=== PATIENT | female | born 1960 | race American Indian/Alaskan Native ===

== ENCOUNTER 2017-03-15 06:15 | Inpatient (IN) | payer OTHER, BC, MEDICARE ==
[2017-03-05 09:56] VITALS: BMI 41.5
[2017-03-15] MEDS ORDERED: Lidocaine 1% Inj (20ml) ONE (07:13)
[2017-03-15] MEDS ORDERED: Bupivacaine 0.5% Inj(30mL) ONE (07:13)
[2017-03-15] MEDS ORDERED: Absorbable Gelatin Sponge Size 100 ONE ×2 (07:13→11:49)
[2017-03-15] MEDS ORDERED: Bacitracin Ointment 30 GM TUBE ONE (07:13)
[2017-03-15] MEDS ORDERED: Thrombin Topical 5,000 IU Spray Kit ONE ×2 (07:14→11:49)
[2017-03-15] MEDS ORDERED: EPINEPHrine 1 mg/ml (1:1000) Inj ONE (07:15)
--- NOTE | 2017-03-15 07:40 | CP.PCM.HP ---
History of Present Illness - History of Present Illness History of Present Illness: 56 y/o female with PMH Obesity ,pre diabetic ,chronic knee and lower back pain, neuropathic pain, bronchitis presented via SDS for revision of right knee by Dr. Thompson.As per patient she had an elevator injury at work in 2012 that resulted in her having right TKR. Since than she has been having progressive worsening pain to right knee with gait instability and decreased ROM. Patient walks with a walker. She complains of severe burning pain to right knee. She also has chronic lower back pain with multiple epidural injections as well as shoulder pains.She is on multiple pain medications for pain control.Today patient being admitted for revision of TKR . She has medical clearance in the chart by her PMD. Denies any CP, SOB, palpitations,PND, orthopnea, urinary symptoms or changes in bowel movements. Allergies ; Seasonal PMH ; Obesity ;prediabetic ,chronic knee and lower back pain,neuropathic pain, bronchitis Medications; HCTZ25, Metformin 500 mg BID, Protonix 40 , folic acid 1 mg, lyrica 75 mg , meloxicam 7.5 TID Percoset 10/325 QID Proair HFA 90 mcg, ambien , catherine , flonase , diclofenac Surgery ; Right hip surgery,right knee replacement ,tubal ligation, tonsillectomy family history; ftaher had HTN and CHF, Mother had pancreatic cancer and HTN, brothers had prostate cancer, sister of scleroderma, sister had colon cancer Social history ; Lives in [place] with and 2 children 11 and 16 years old, disabled, walks with a walker , denies smoking ETOH or drug abuse lives in a home with stairs ROS ; 14 point rview of system negative except above PMD : Dr. Lalita Martin Present on Admission - Present on Admission Any Indicators Present on Admission: No Review of Systems - Review of Systems All systems: reviewed and no additional remarkable complaints except Past Patient History - Infectious Disease Hx of Infectious Diseases: None - Tetanus Immunizations Tetanus Immunization: Unknown - Past Medical History & Family History Past Medical History?: Yes - Past Social History Smoking Status: Former Smoker Chewing Tobacco Use: No Cigar Use: No Alcohol: None Drugs: Denies Home Situation {Lives}: With Family Domestic Violence: Negative - CARDIAC Hx Cardiac Disorders: No - PULMONARY Hx Respiratory Disorders: Yes Hx Bronchitis: Yes - NEUROLOGICAL Hx Neurological Disorder: Yes Other/Comment: NUMBENESS TINGLING LEGS AND BACK - HEENT Hx HEENT Problems: No - RENAL Hx Chronic Kidney Disease: No - ENDOCRINE/METABOLIC Other/Comment: GOITER - HEMATOLOGICAL/ONCOLOGICAL Hx Blood Disorders: Yes Hx Anemia: Yes Hx Gum Bleeding: Yes - INTEGUMENTARY Hx Dermatological Problems: No - MUSCULOSKELETAL/RHEUMATOLOGICAL Hx Musculoskeletal Disorders: Yes Hx Arthritis: Yes Hx Back Pain: Yes Other/Comment: MUSCLE WEAKNESS .LIMIT JOINTMOTION - GASTROINTESTINAL Hx Gastrointestinal Disorders: Yes Hx Gastroesophageal Reflux: Yes - GENITOURINARY/GYNECOLOGICAL Hx Genitourinary Disorders: No - PSYCHIATRIC Hx Psychophysiologic Disorder: No - SURGICAL HISTORY Hx Orthopedic Surgery: Yes (RIGHT KNEE REPLACEMENT, RIGHT HIP SX, LEFT MENSICUS REPAIR) - ANESTHESIA Hx Anesthesia: Yes Hx Anesthesia Reactions: No Hx Malignant Hyperthermia: No Has any member of the family had a problem w/ anesthesia?: No Meds Allergies/Adverse Reactions: Allergies Allergy/AdvReac Type Severity Reaction Status Date / Time No Known Allergies Allergy Verified 08/09/12 12:30 Physical Exam - Constitutional Appears: Non-toxic, No Acute Distress, Other (obese) - Head Exam Head Exam: ATRAUMATIC, NORMAL INSPECTION, NORMOCEPHALIC - Eye Exam Eye Exam: EOMI, Normal appearance, PERRL Pupil Exam: NORMAL ACCOMODATION - ENT Exam ENT Exam: Mucous Membranes Moist, Normal Exam - Neck Exam Neck exam: Positive for: Full Rom, Normal Inspection - Respiratory Exam Respiratory Exam: Clear to Auscultation Bilateral, NORMAL BREATHING PATTERN. absent: Rales, Rhonchi, Wheezes - Cardiovascular Exam Cardiovascular Exam: REGULAR RHYTHM, RRR, +S1, +S2. absent: JVD - GI/Abdominal Exam GI & Abdominal Exam: Normal Bowel Sounds, Soft. absent: Distended, Guarding, Rebound, Tenderness - Rectal Exam Rectal Exam: Deferred - Extremities Exam Extremities exam: Positive for: normal capillary refill, normal inspection, pedal pulses present. Negative for: calf tenderness, joint swelling, pedal edema - Back Exam Back exam: NORMAL INSPECTION - Neurological Exam Neurological exam: Alert, CN II-XII Intact, Oriented x3, Reflexes Normal - Psychiatric Exam Psychiatric exam: Normal Affect, Normal Mood - Skin Skin Exam: Dry, Intact, Normal Color, Warm Results - Vital Signs Recent Vital Signs: Last Vital Signs Temp 98.1 F 03/15/17 07:22 Pulse 69 03/15/17 07:22 Resp 18 03/15/17 07:22 BP 133/73 03/15/17 07:22 Pulse Ox 96 03/15/17 07:22 - Labs Labs: Laboratory Results - last 24 hr 03/15/17 07:13 POC Glucose (mg/dL) 98 Assessment & Plan - Assessment and Plan (Free Text) Assessment: 56 y/o female with PMH Obesity ,pre diabetic ,chronic knee and lower back pain, neuropathic pain, bronchitis presented via SDS for revision of TKR by Dr. Thompson. 1. Revision of TKR admit patient via SDS clearance in the chart Keep NPO for now Will start pian management and DVt prophylaxis post op as per ortho recommendations PT eval post op 2. Pre diabetic NPO for now Will resiume Metformin tomorrow Accuchecks and insulin coverage check Hgb A1c 3. Morbid obesity patient used to be on diet pills Belviq but has been not taking for the last 1 month follows up with an food and beverage operations manager 4. Chronic lower back pain Will start pain medication and PT post op 5.Anemia unclear etiology Hgb 10.9 preop repeat in AM 6. Bronchitis stable duonebs prn 7. DVT prophylaxis will start post op as per ortho recommendations
[2017-03-15] MEDS ORDERED: Pantoprazole 40 mg EC Tab PO SCH (09:00)
[2017-03-15] MEDS ORDERED: Dexamethasone 4 mg/1 ml ONE (12:09)
[2017-03-15] MEDS ORDERED: Ropivacaine 0.5% 30ML IV ONE (12:09)
[2017-03-15] MEDS ORDERED: Lidocaine 4% (Laryng-O-Jet) Kit MM ONE (12:13)
[2017-03-15] MEDS ORDERED: Propofol 10 mg/ml Inj (20 ML) ONE (12:13)
[2017-03-15] MEDS ORDERED: Succinylcholine 200 mg/10 ml Inj IV ONE (12:13)
[2017-03-15] MEDS ORDERED: Midazolam 2 MG/2 ML VIAL ONE (13:20)
[2017-03-15] MEDS ORDERED: Lactated Ringer's 1,000 ML IV ONE ×3 (13:27→18:16)
[2017-03-15] MEDS ORDERED: Lactated Ringer's 500 ML IV ONE (13:27)
[2017-03-15] MEDS ORDERED: Sodium Chloride 0.9% 500 ML IV ONE (13:28)
--- NOTE | 2017-03-15 13:56 | CP.PCM.CON ---
History of Present Illness - History of Present Illness History of Present Illness: CYNTHIA: 56 yo female CC: Severe pain and deformity and instability R knee s/p TKR (Right) HPI: pt had sustained a work related injury 02/25/12- as a result of this injury, the pt underwent TKR (Right). Since the index arthroplasty(December 2012, the pt had an episode of arthrofibosis which culminated in manipulATION. sINCE THEN, THE PT HAS NOTED INCREASED VALGUS DEFORMITY of the Right knee. bThe pt exhibits marked flexion instability and loosening of the femoral component. Pt presetns after two years of pain and gross flexion instability. CT scan had been accomplished which was incorrectly read as negative. The pt has a varus tibial cut/thick patella/loosening of the femoral comonent, and flexion extension gap mismatch on physical exam The pr has failed two years of conservative managment and presents now for revision of all 3 componenets. Pros , cons, risks and benefits of surgical approachg discussed at length with pt and her signifciant other Alfa. Possibility of mechanical failure/ infection thromboembolic disease discussed at length No promises/guarantees. Possibility of stiffness, nerve in jury, mechanical failure, secondary manipulation or surgery, possible tertiary surgery discussed. No promises/ guarantees Past Patient History - Infectious Disease Hx of Infectious Diseases: None - Tetanus Immunizations Tetanus Immunization: Unknown - Past Medical History & Family History Past Medical History?: Yes - Past Social History Smoking Status: Former Smoker Chewing Tobacco Use: No Cigar Use: No Alcohol: None Drugs: Denies Home Situation {Lives}: With Family Domestic Violence: Negative - CARDIAC Hx Cardiac Disorders: No - PULMONARY Hx Respiratory Disorders: Yes Hx Bronchitis: Yes - NEUROLOGICAL Hx Neurological Disorder: Yes Other/Comment: NUMBENESS TINGLING LEGS AND BACK - HEENT Hx HEENT Problems: No - RENAL Hx Chronic Kidney Disease: No - ENDOCRINE/METABOLIC Other/Comment: GOITER - HEMATOLOGICAL/ONCOLOGICAL Hx Blood Disorders: Yes Hx Anemia: Yes Hx Gum Bleeding: Yes - INTEGUMENTARY Hx Dermatological Problems: No - MUSCULOSKELETAL/RHEUMATOLOGICAL Hx Musculoskeletal Disorders: Yes Hx Arthritis: Yes Hx Back Pain: Yes Other/Comment: MUSCLE WEAKNESS .LIMIT JOINTMOTION - GASTROINTESTINAL Hx Gastrointestinal Disorders: Yes Hx Gastroesophageal Reflux: Yes - GENITOURINARY/GYNECOLOGICAL Hx Genitourinary Disorders: No - PSYCHIATRIC Hx Psychophysiologic Disorder: No - SURGICAL HISTORY Hx Orthopedic Surgery: Yes (RIGHT KNEE REPLACEMENT, RIGHT HIP SX, LEFT MENSICUS REPAIR) - ANESTHESIA Hx Anesthesia: Yes Hx Anesthesia Reactions: No Hx Malignant Hyperthermia: No Has any member of the family had a problem w/ anesthesia?: No Meds Allergies/Adverse Reactions: Allergies Allergy/AdvReac Type Severity Reaction Status Date / Time seasonal Allergy ITCHING Uncoded 03/15/17 07:38 - Medications Medications: Current Medications Acetaminophen (Tylenol 325mg Tab) 650 mg PO Q6 PRN PRN Reason: Fever >100.4 F Docusate Sodium (Colace) 100 mg PO BID [facility] Enoxaparin Sodium (Lovenox) 40 mg SC DAILY JOHN PRN Reason: Protocol Folic Acid (Folic Acid) 1 mg PO DAILY [facility] Hydrochlorothiazide (Hydrodiuril) 25 mg PO DAILY [facility] Metformin HCl (Glucophage) 500 mg PO BID [facility] Ondansetron HCl (Zofran Inj) 4 mg IVP Q6 PRN PRN Reason: Nausea/Vomiting Pantoprazole Sodium (Protonix Ec Tab) 40 mg PO DAILY JOHN Pregabalin (Lyrica) 75 mg PO TID JOHN Physical Exam - Additional Findings Additional findings: Musculoskekltal: stance erect/ pelvis levbel antalgicity of gait R: decreased stride length/stance time ROM retsricted tyerminal flex ext +instability to varus valgus in full extension and 30 degrees flexion 4+ anterior drawer with positive Parag and gross instability Results - Vital Signs Recent Vital Signs: Last Vital Signs Temp 98.1 F 03/15/17 07:22 Pulse 69 03/15/17 07:30 Resp 18 03/15/17 07:22 BP 133/73 03/15/17 07:22 Pulse Ox 96 03/15/17 07:22 - Labs Labs: Laboratory Results - last 24 hr 03/15/17 03/15/17 07:13 07:40 POC Glucose (mg/dL) 98 Blood Type A POSITIVE Antibody Screen Negative Crossmatch See Detail BBK History Checked Patient has bt - Impressions Impression: Xrays accomplioshed at [facility] were incorrectly read and are discounted errors in the TKR: radiographic: thick patella varus tibial cut femoral component lossening physical exam reveals the aforemenetione flexion/extension instability Assessment & Plan - Assessment and Plan (Free Text) Assessment: A- s.p primary TKR after work related injury Absolutely no evidence for sepsis / the pt is having marked pain, instability and gait dysfunction Pt presents at this pouint fro revision TKR Plan: P- for revision TKR- all 3 compionents NO promises or guarantees
[2017-03-15] MEDS ORDERED: Desflurane Inhalation Anesthetic Liq (240 ml) ONE (13:58)
[2017-03-15] MEDS ORDERED: Rocuronium 10 mg/ml (5 ml) ONE ×3 (14:11→16:38)
[2017-03-15] MEDS ORDERED: Phenylephrine 10 mg/ml Inj ONE (14:37)
[2017-03-15] MEDS ORDERED: Neostigmine Methylsulfate 2 MG/2 ML ML IV ONE (14:51)
[2017-03-15] MEDS ORDERED: Neostigmine Methylsulfate 3mg/3ml Syringe IV ONE (14:51)
[2017-03-15 15:00] LABS: FLUID TYPE SYNOVIAL FLUID
[2017-03-15] MEDS ORDERED: Sevoflurane - Inhalation Anesthetic Liq (250 ml) ONE (15:29)
[2017-03-15] MEDS ORDERED: HYDROmorphone 0.5 mg/0.5 ml ISec IVP PRN (16:17)
--- NOTE | 2017-03-15 16:22 | PCM.ANESB2 ---
Popliteal Nerve Block - Popliteal Nerve Block Date of Procedure: 03/15/17 Anesthesiologist: Rigoberto Pre-Procedure Diagnosis: Failed RTKA Post-Procedure Diagnosis: Same Procedure Performed: Popliteal Nerve Block Right - Procedure Popliteal Nerve Block: This procedure was explained to the patient that it is for post-operative pain management. Consent was obtained after a thorough discussion with the patient regarding the benefits and possible complications of local anesthetic block of the sciatic nerve at the popliteal level. The patient was brought to the operating room and standard monitors are applied. Time-out was held with the circulating nurse to confirm the correct surgery and the appropriate block. Under general anesthesia, patient's operative leg was gently raised and supported and the groove in between the biceps femoris and vastus lateralis muscles was carefully palpated. The skin approximately 8cm above the popliteal crease was then marked. The ultrasound transducer was then applied to the posterior thigh approximately 8cm above the popliteal crease in the transverse plane and the sciatic nerve before its division was visualized lateral to the popliteal artery and in between the bicep femoris and semimembranosus/ semitendinosus muscles. After identification, the lateral portion of the thigh was prepped with Chloraprep. At this point, a # 21 gauge Stimuplex insulated 4 inch needle was inserted into pre-marked area and advanced in a perpendicular direction. The needle was inserted above the ultrasound transducer in-plane towards the sciatic nerve in a [id number]-[id number] direction. Needle advancement was performed carefully under direct ultrasound visualization. Nerve stimulator was used and dorsiflexion of the __right___ foot was elicited at a current of __0.5___ MA. After repeated negative aspiration, __2___cc of __0.5___ % ropivicaine was injected and this was flowed with ___18___ cc of ___0.5___% ___ropivicaine ___. Under ultrasound guidance the local anesthetics were observed tenting the epidural sheath and surrounding the roots of the sciatic nerve. The needle was removed intact and sterile dressing was applied. The patient tolerated the popliteal nerve block well with stable vital signs and was subsequently prepared for the surgery.
--- NOTE | 2017-03-15 16:25 | PCM.ANESB3 ---
Femoral Nerve Block - Femoral Nerve Block Date of Procedure: 03/15/17 Anesthesiologist: Rigoberto Pre-Procedure Diagnosis: Failed RTKA Post-Procedure Diagnosis: Same Procedure Performed: Femoral Nerve Block Right - Procedure Femoral Nerve Block: The procedure was explained to the patient that it is for the post-operative pain management. Consent was obtained after a thorough discussion with the patient regarding the benefits and possible complications of local anesthetic block of the femoral nerve at the inguinal crease area. The patient was brought to the operating room and standard monitors were applied. Time-out was held with the circulating nurse to confirm the correct surgery and the appropriate block. Under general anesthesia, patient was placed in supine position with fully extended lower extremities and the right___ groin exposed. The femoral artery was then carefully palpated. The ultrasound transducer was then applied to this area in the transverse plane and the femoral nerve was visualized lateral to the femoral artery and underneath the fascia iliaca. After thorough identification, the inguinal crease area was prepped with Chloraprep. At this point, a #22 gauge Stimuplex 2-inch needle was inserted immediately lateral to the femoral artery pulse at the inguinal crease and advanced perpendicularly. The needle was inserted to the ultrasound transducer in-plane towards the femoral nerve in a ipkhmll-hs-bihsts direction. Needle advancement was performed carefully under direct ultrasound visualization. Nerve stimulator was used and twitch of the quadriceps muscle was obtained at current of ___0.4__ MA. After negative aspiration, ___2__cc of ___0.5__% ropivicaine ____was injected and this was followed with __18____ cc of ___0.5____ % ropivicaine . Under ultrasound guidance the local anesthetics were observed spreading below fascia iliaca and around the femoral nerve. The needle was removed intact and sterile dressing was applied. The patient had stable vital signs, was conscious and in no apparent distress. The patient tolerated the femoral nerve block well with stable vital signs and was prepared for subsequent surgery.
[2017-03-15 17:10] LABS: SYNOVIAL FLUID TOTAL COUNT 100 (0-0)
[2017-03-15] MEDS ORDERED: Lactated Ringer's 1,000 ML IV SCH (18:19)
[2017-03-15] MEDS: HYDROmorphone 0.5 mg/0.5 ml ISec IVP PRN ×4 (18:20→19:15)
[2017-03-15] MEDS ORDERED: ceFAZolin 1 GM in Sodium Chloride 0.9% 100 ML IVPB SCH (19:45)
--- NOTE | 2017-03-15 19:55 | PCM.SURG1 ---
Surgeon's Initial Post Op Note - Surgeon's Notes Surgeon: Donna Tobacco Classer: BERNADETTE Osborne Type of Anesthesia: General Endo, Block Regional Anesthesia Administered By: Dr Srinivas Torres/Dr [place] Pre-Operative Diagnosis: painful/UNstable/malaligned R TKR. thick patella component. valgus deformity post op. morbid obesity Operative Findings: instability with flexion/extension mismatch. instability in varus/valsus plane as well. lateral patella contracture(malalingment-valgus deformity). thick patella girth Post-Operative Diagnosis: same Operation Performed: Revision R TKR- complex. repair/reinforcemnt patella ligament. Removal TKR- 3 components. anterior and posterior synovectomy. lateral patella release. posterior capsular release Specimen/Specimens Removed: TKR components/synovium/cartilage/bone Estimated Blood Loss: EBL {In ML}: 125 Blood Products Given: N/A Drains Used: No Drains Post-Op Condition: Good Date of Surgery/Procedure: 03/15/17 Time of Surgery/Procedure: 14:40 (13:27)
--- NOTE | 2017-03-15 21:12 | PCM.OP ---
Operative Report - Operative Report Date of Surgery/Procedure: 03/15/17 Time of Surgery/Procedure: 14:40 (time in room/anaesthesia indcution time 13:27) Surgeon: Donna [employer] Assistant: BERNADETTE Osborne/ assist Sunita Stallworth Anesthesia/Sedation: GETA/regional- DR Peterson/DR Shane Pre-Operative Diagnosis: Failed/painful/unstable TKR R Post-Operative Diagnosis: same. severe valgua malalignment post op with persistent instability Indication for Surgery: severe pain, inability to ambulate, and instability R TKR Operative Findings: unstable R TKR. synovits. lateral patella contracture. thick patella girth. morbid obesity Procedure/Operation Description: Revision R TKR. repair patella tendon. anterior and posterior synovectomy. removal failed TKR componenets. posterior capsualr release. lateral patella release. Operative procedure. After having obtained informed consent from pt and her , after throughly discussing pros's, cons risks and benfits of surgical approach, after having identiifed side, site and procedure in a critical pause/time-out, the pt identified as Jessica Zeng, in the supoine position with all bony prominences well padded the R lower ext is prepped and free draped in the usual fashion for lower extremity surgery. The tourniquet had been applied but is not yet inflated. The lower ext is exsanguinated using a 6 inch Esmarch bandage. The tourniquet which had been applied is inflated to 350 mm HG. The initial incision is extended 2 fingerbreadths proximally and distally. Skin incision is carried down thru skin and subq tissue. Medial arthrotomy is accomplished. synovial fluid is sent to lab for stat gm stain(number of WBCS per hi power field). Cultures- aerobic, anaerobic AFB and fungal. Patella is everted, knee is flexed and portion of patella ligament insertion is elvated to be repaired later. Pt is morbidly obese with aBMI . Lateral patella retinacular release is accomplished to allow eversion of patella. Partial syovectomy is accomplished Hemostasis is accomplished using the Aquamantys. attention is first turned to the tibial compponent. It should be noted that evaluation of alignment (severe preop valgus)- and stability testing is accomplished. The pt has severe flexion instability with evidence of flexion/extension mismatch. There is evidence of varus valgus instability as well. The interfac e between the tibial component and the cement is developed with the oscillating saw and the Accu druve instrument. The plane is developed circumferentially, and the component is removed with the [employer] revision osteotome. Excess cement is removed with the high speed [place] drill. At this point comuter navigation is employed, using accelerometer technology. The tibial strut is affixeed the the anterior aspect of the tibia. The sensor and the accelorometer are affixed as well. the medial and lateral malleoli are registered, after the offset has been entered. The tibial cut is set to 0 degrees varus/valgus and 0 degrees post slope. Tibial cut is set as skim cut 1 mm below the tibial surface. Tibial osteotmy is accomplshed and the proximal tibia is prepared with reamin to 12 mm stem. The prox tibial plateau is prepared with guides to roattaion the lateral asp[ect of the tibial condyle, kidmalleolar axis and medial 1/3 tibial tuberosity. Attention is turned to the femur, The plane between the oxinium component and the femoral cment is developed using the high speed drill and the Accudrive. The compinent is removbed with minimal bone loss; in fact the femoral componeent is relatively loose, and is removed with little bone loss. The intramedullary canal is found and the distal femoral cut is set to 2 degrees valgus- the distal cut is set to 25 mmdistal to the femoral epiciondyle. Distal femoral cut is accomplished. # 3 4-in 1 block is affixed to the distal femur. chamfer cuts are accomplished anterior and posterior femoral osteotomies are accomplished. posterior capsule is forund to be contracted with exuberant synovitis- Posterior capsule is released and lateral patella retiaculkumis released. Intercondylar box cut is accomplished and thye femoral canal is reamed to 12mm. patella girth is found to be excessive. The poly patella component is removed using the oscillateing saw. plastic pegs are removed. The patella is reamed. Trialing is accomplished with the #3 femoral component with stem extension; the #2 tibial tray with stem extensionis employed and. 22 mm tibial poly insert. 35 mm patella is employed. Flexion extension balance and patella balance are excellent. The femur, tibia and patella are prepared after the tourniquet is deflated. The #3 femoral component is cmented with stem extension nad the numer 2 tibial comonent. The 35 mm patella is cemented. Posterior capsuleis released aswell as latersl patella retinaculum. Anterior and posterior synovectomy is accomplished. Tourniquet deflated/hemostasis is controlled. Closure in layers with #2 fiber wire/ 0 quill 2-0 vicryl and nikki for skin It should be noted prior to closure, the patella ligament is repaire/reinforced with 2 anchors with 4 fiber wire sutures to repair/reinforce the patella. Ricardo Miller dressing and knee immobilizer is applied. Dr Thompson dictating 03/15. posterior synovectomy is accomplished. Estimated Blood Loss: 125 cc Blood Replaced: 2 units prbc's Sponge/Instrument Count: correct Drains: 0 Complications: none Specimen: cartilage/synovium/bone Discharge & Condition: stable
[2017-03-16] MEDS: ceFAZolin 1 GM in Sodium Chloride 0.9% 100 ML IVPB SCH ×2 (01:26→08:36)
[2017-03-16 06:56] LABS: BASO % 0.1 % (0.0-2.0); HEMATOCRIT 32.1 % (34.0-47.0); LYMPH # 1.1 K/uL (1.0-4.3); LYMPH % 12.9 % (20.0-40.0); MEAN CELL VOLUME 88.1 fl (81.0-99.0); MEAN CORPUSCULAR HEMOGLOBIN 29.4 pg (27.0-31.0); MEAN CORPUSCULAR HGB CONC 33.4 g/dL (33.0-37.0); MEAN PLATELET VOLUME 8.1 fl (7.2-11.7); MONO # 0.8 K/uL (0.0-0.8); NEUT # 6.6 K/uL (1.8-7.0); NRBC % 0.1 % (0.0-0.0); RED CELL DISTRIBUTION WIDTH 14.4 % (11.5-14.5); WHITE BLOOD COUNT 8.4 K/uL (4.8-10.8)
[2017-03-16 07:04] LABS: BLOOD UREA NITROGEN 11 mg/dl (7-17); CALCIUM 8.3 mg/dL (8.4-10.2); CARBON DIOXIDE 24 mmol/L (22-30); CHLORIDE 106 mmol/L (98-107); GFR AFRICAN-AMERICAN > 60; GLUCOSE,RANDOM 122 mg/dL (65-105); POTASSIUM 3.9 MMOL/L (3.6-5.0); SODIUM 137 mmol/l (132-148)
--- NOTE | 2017-03-16 07:58 | CP.PCM.PN ---
Subjective - Date & Time of Evaluation Date of Evaluation: 03/16/17 Time of Evaluation: 07:55 - Subjective Subjective: S- pt with some post op discomfort-managed with analgesia Objective - Vital Signs/Intake and Output Vital Signs (last 24 hours): Temp Pulse Resp BP Pulse Ox 98.6 F 59 L 18 103/68 100 03/16/17 07:36 03/16/17 07:36 03/16/17 07:36 03/16/17 07:36 03/16/17 07:36 - Medications Medications: Current Medications Acetaminophen (Tylenol 325mg Tab) 650 mg PO Q6 PRN PRN Reason: Fever >100.4 F Docusate Sodium (Colace) 100 mg PO BID JOHN Enoxaparin Sodium (Lovenox) 40 mg SC DAILY JOHN PRN Reason: Protocol Folic Acid (Folic Acid) 1 mg PO DAILY JOHN Hydrochlorothiazide (Hydrodiuril) 25 mg PO DAILY JOHN Hydromorphone HCl (Dilaudid 0.2 Mg/Ml Band Scroll Saw Operator) 0 mg IV PRN PRN; Protocol PRN Reason: Pain, moderate (4-7) Last Admin: 03/16/17 04:29 Dose: 6 mg Lactated Ringer's (Lactated Ringer's) 1,000 mls @ 100 mls/hr IV .Q10H JOHN Lactated Ringer's (Lactated Ringer's) 1,000 mls @ 100 mls/hr IV .Q10H JOHN Cefazolin Sodium 1 gm/ Sodium (Chloride) 100 mls @ 100 mls/hr IVPB Q8 JOHN Stop: 03/16/17 09:59 Last Admin: 03/16/17 01:26 Dose: 100 mls/hr Metformin HCl (Glucophage) 500 mg PO BID JOHN Ondansetron HCl (Zofran Inj) 4 mg IVP Q6 PRN PRN Reason: Nausea/Vomiting Pantoprazole Sodium (Protonix Ec Tab) 40 mg PO DAILY JOHN Pregabalin (Lyrica) 75 mg PO TID JOHN - Labs Labs: 03/16/17 06:20 03/16/17 06:20 PT 12.2 Seconds (9.8-13.1) 03/16/17 06:20 INR 1.2 (0.9-1.2) 03/16/17 06:20 - Skin Additional comments: Objective systemic-wnl Musculoskeletal stance/gait-defrred Dressingintact N/V intact Xrays- reveal excellentposition of construct Assessment and Plan - Assessment and Plan (Free Text) Assessment: A- s/p Revision TKR P- physio- orthopedically stable full weight bearing CPM
[2017-03-16] MEDS: Pantoprazole 40 mg EC Tab PO SCH ×2 (08:53→09:05)
[2017-03-16] MEDS: Lactated Ringer's 1,000 ML IV SCH (08:59)
--- NOTE | 2017-03-16 09:49 | CP.PCM.PN ---
Subjective - Date & Time of Evaluation Date of Evaluation: 03/16/17 Time of Evaluation: 09:45 - Subjective Subjective: 56 yo woman s/p right TKR, POD #1, is referred for pain management. Patient is a chronic pain patient, on Lyrica and Percocet 10/325mg at home. She has a pain management physician managing her pain, who has tried her on various medications before settling on the current regimen. After a previous surgery, she was briefly placed on a long acting agent before being weaned to the current regimen. She said that she couldn't tolerate Morphine due to lethargy and sedation, as well as confusion. She had been on Dilaudid CONTRACT FORESTER post-op, but she felt it wasn't effective and the beeping noise was bothersome. Objective - Vital Signs/Intake and Output Vital Signs (last 24 hours): Temp Pulse Resp BP Pulse Ox 98.6 F 59 L 18 103/68 100 03/16/17 07:36 03/16/17 07:36 03/16/17 07:36 03/16/17 07:36 03/16/17 07:36 - Medications Medications: Current Medications Acetaminophen (Tylenol 325mg Tab) 650 mg PO Q6 PRN PRN Reason: Fever >100.4 F Docusate Sodium (Colace) 100 mg PO BID [facility] Last Admin: 03/16/17 08:53 Dose: 100 mg Enoxaparin Sodium (Lovenox) 40 mg SC DAILY [facility] PRN Reason: Protocol Folic Acid (Folic Acid) 1 mg PO DAILY [facility] Last Admin: 03/16/17 09:01 Dose: 1 mg Hydrochlorothiazide (Hydrodiuril) 25 mg PO DAILY [facility] Hydromorphone HCl (Dilaudid) 1 mg IVP Q3 PRN PRN Reason: Pain, severe (8-10) Lactated Ringer's (Lactated Ringer's) 1,000 mls @ 100 mls/hr IV .Q10H [facility] Last Admin: 03/16/17 08:59 Dose: 100 mls/hr Lactated Ringer's (Lactated Ringer's) 1,000 mls @ 100 mls/hr IV .Q10H [facility] Cefazolin Sodium 1 gm/ Sodium (Chloride) 100 mls @ 100 mls/hr IVPB Q8 [facility] Stop: 03/16/17 09:59 Last Admin: 03/16/17 08:36 Dose: 100 mls/hr Metformin HCl (Glucophage) 500 mg PO BID [facility] Ondansetron HCl (Zofran Inj) 4 mg IVP Q6 PRN PRN Reason: Nausea/Vomiting Pantoprazole Sodium (Protonix Ec Tab) 40 mg PO DAILY [facility] Last Admin: 03/16/17 09:05 Dose: 40 mg Pregabalin (Lyrica) 75 mg PO TID [facility] Last Admin: 03/16/17 09:05 Dose: 75 mg - Labs Labs: 03/16/17 06:20 03/16/17 06:20 PT 12.2 Seconds (9.8-13.1) 03/16/17 06:20 INR 1.2 (0.9-1.2) 03/16/17 06:20 - Extremities Exam Additional comments: Right knee dressing intact. Assessment and Plan (1) Knee pain Assessment & Plan: 56 yo woman s/p TKR. Patient has chronic pain and has higher opioid requirement post-op. - d/c dilaudid [employer] FORESTER - start Oxycontin 20mg q12h - start Dilaudid IV 1mg q3h PRN - upon discharge to rehab, patient can be switched from Dilaudid IV to home medication of Percocet 10/325, q4-6h PRN - continue Lyrica Status: Acute
[2017-03-16] MEDS: Enoxaparin 40 mg Syringe SC SCH (10:00)
[2017-03-16] MEDS: oxyCODONE 20 mg ER Tab (oxyCONTIN) PO SCH ×2 (10:14→22:17)
--- NOTE | 2017-03-16 11:14 | CP.PCM.CON ---
History of Present Illness - History of Present Illness History of Present Illness: THE PATIENT IS A 56 YEAR OLD FEMALE WHO HAD A COMPLEX REVISION OR HER RIGHT TKR YESTERDAY BY DR BHANDARI WHO ASKED ME TO FOLLOW HER O THIS ADMISSION. SHE HAD AN ELEVATOR WORK INJURY IN 2012 AND HAD A TOTAL RKR AT THAY TIME BUT SHE CONTINUED TO HAVE PAIN AND THEN INSTABILITY OF HER RIGHT KNEE AND THERE HAD THE REVISION YESTERDAY. SHE ALSO HAS A HISTORY OF TYPE 2 DM, CHRONIC BRONCHITIS, BACK PAIN AND SHE IS OVERWEIGHT. SHE DENIES CHEST PAIN OR SOB. Past Patient History - Infectious Disease Hx of Infectious Diseases: None - Tetanus Immunizations Tetanus Immunization: Unknown - Past Medical History & Family History Past Medical History?: Yes - Past Social History Smoking Status: Former Smoker Chewing Tobacco Use: No Cigar Use: No Alcohol: None Drugs: Denies Home Situation {Lives}: With Family Domestic Violence: Negative - CARDIAC Hx Cardiac Disorders: No - PULMONARY Hx Respiratory Disorders: Yes Hx Bronchitis: Yes - NEUROLOGICAL Hx Neurological Disorder: Yes Other/Comment: NUMBENESS [place] LEGS AND BACK - HEENT Hx HEENT Problems: No - RENAL Hx Chronic Kidney Disease: No - ENDOCRINE/METABOLIC Other/Comment: GOITER - HEMATOLOGICAL/ONCOLOGICAL Hx Blood Disorders: Yes Hx Anemia: Yes Hx Gum Bleeding: Yes - INTEGUMENTARY Hx Dermatological Problems: No - MUSCULOSKELETAL/RHEUMATOLOGICAL Hx Musculoskeletal Disorders: Yes Hx Arthritis: Yes Hx Back Pain: Yes Other/Comment: MUSCLE WEAKNESS .LIMIT JOINTMOTION - GASTROINTESTINAL Hx Gastrointestinal Disorders: Yes Hx Gastroesophageal Reflux: Yes - GENITOURINARY/GYNECOLOGICAL Hx Genitourinary Disorders: No - PSYCHIATRIC Hx Psychophysiologic Disorder: No - SURGICAL HISTORY Hx Orthopedic Surgery: Yes (RIGHT KNEE REPLACEMENT, RIGHT HIP SX, LEFT MENSICUS REPAIR) - ANESTHESIA Hx Anesthesia: Yes Hx Anesthesia Reactions: No Hx Malignant Hyperthermia: No Has any member of the family had a problem w/ anesthesia?: No Meds Allergies/Adverse Reactions: Allergies Allergy/AdvReac Type Severity Reaction Status Date / Time seasonal Allergy ITCHING Uncoded 03/15/17 07:38 - Medications Medications: Current Medications Acetaminophen (Tylenol 325mg Tab) 650 mg PO Q6 PRN PRN Reason: Fever >100.4 F Docusate Sodium (Colace) 100 mg PO BID [facility] Last Admin: 03/16/17 08:53 Dose: 100 mg Enoxaparin Sodium (Lovenox) 40 mg SC DAILY [facility] PRN Reason: Protocol Folic Acid (Folic Acid) 1 mg PO DAILY [facility] Last Admin: 03/16/17 09:01 Dose: 1 mg Hydrochlorothiazide (Hydrodiuril) 25 mg PO DAILY [facility] Hydromorphone HCl (Dilaudid) 1 mg IVP Q3 PRN PRN Reason: Pain, severe (8-10) Last Admin: 03/16/17 10:15 Dose: 1 mg Lactated Ringer's (Lactated Ringer's) 1,000 mls @ 100 mls/hr IV .Q10H [facility] Last Admin: 03/16/17 08:59 Dose: 100 mls/hr Lactated Ringer's (Lactated Ringer's) 1,000 mls @ 100 mls/hr IV .Q10H [facility] Metformin HCl (Glucophage) 500 mg PO BID [facility] Ondansetron HCl (Zofran Inj) 4 mg IVP Q6 PRN PRN Reason: Nausea/Vomiting Oxycodone HCl (Oxycontin Extended Release Tab) 20 mg PO Q12 [facility] Last Admin: 03/16/17 10:14 Dose: 20 mg Pantoprazole Sodium (Protonix Ec Tab) 40 mg PO DAILY [facility] Last Admin: 03/16/17 09:05 Dose: 40 mg Pregabalin (Lyrica) 75 mg PO TID [facility] Last Admin: 03/16/17 09:05 Dose: 75 mg Physical Exam - Respiratory Exam Respiratory Exam: Clear to Auscultation Bilateral - Cardiovascular Exam Cardiovascular Exam: REGULAR RHYTHM, +S1, +S2 - Additional Findings Additional findings: PAT EKG WITH NSR Results - Vital Signs Recent Vital Signs: Last Vital Signs Temp 98.6 F 03/16/17 07:36 Pulse 59 L 03/16/17 07:36 Resp 18 03/16/17 07:36 BP 103/68 03/16/17 07:36 Pulse Ox 100 03/16/17 07:36 - Labs Result Diagrams: 03/16/17 06:20 03/16/17 06:20 Labs: Laboratory Results - last 24 hr 03/15/17 03/15/17 03/15/17 07:40 14:58 18:51 WBC RBC Hgb Hct MCV MCH MCHC RDW Plt Count MPV Neut % (Auto) Lymph % (Auto) [place] % (Auto) Eos % (Auto) Baso % (Auto) Neut # Lymph # [place] # Eos # Baso # PT INR Sodium Potassium Chloride Carbon Dioxide Anion Gap BUN Creatinine Est GFR ( Amer) Est GFR (Non-Af Amer) POC Glucose (mg/dL) 121 H Random Glucose Calcium Fluid Type Synovial fluid Synovial WBC 10.0 Synovial RBC 1337.5 H Synovial Neutrophils 15.0 H Synovial Lymphocytes 53.0 H Synov Monos/Macrophage 32 H Synovial Fluid Comment None Blood Type A POSITIVE Antibody Screen Negative Crossmatch See Detail BBK History Checked Patient has bt 03/16/17 03/16/17 03/16/17 05:49 06:20 06:20 WBC 8.4 D RBC 3.64 L Hgb 10.7 L Hct 32.1 L MCV 88.1 D MCH 29.4 MCHC 33.4 RDW 14.4 Plt Count 160 MPV 8.1 Neut % (Auto) 78.0 H Lymph % (Auto) 12.9 L [place] % (Auto) 9.0 Eos % (Auto) 0.0 Baso % (Auto) 0.1 Neut # 6.6 Lymph # 1.1 [place] # 0.8 Eos # 0.0 Baso # 0.0 PT 12.2 INR 1.2 Sodium Potassium Chloride Carbon Dioxide Anion Gap BUN Creatinine Est GFR ( Amer) Est GFR (Non-Af Amer) POC Glucose (mg/dL) 121 H Random Glucose Calcium Fluid Type Synovial WBC Synovial RBC Synovial Neutrophils Synovial Lymphocytes Synov Monos/Macrophage Synovial Fluid Comment Blood Type Antibody Screen Crossmatch BBK History Checked 03/16/17 03/16/17 06:20 10:50 WBC RBC Hgb Hct MCV MCH MCHC RDW Plt Count MPV Neut % (Auto) Lymph % (Auto) [place] % (Auto) Eos % (Auto) Baso % (Auto) Neut # Lymph # [place] # Eos # Baso # PT INR Sodium 137 Potassium 3.9 Chloride 106 Carbon Dioxide 24 Anion Gap 11 BUN 11 Creatinine 0.7 Est GFR ( Amer) > 60 Est GFR (Non-Af Amer) > 60 POC Glucose (mg/dL) 104 Random Glucose 122 H Calcium 8.3 L Fluid Type Synovial WBC Synovial RBC Synovial Neutrophils Synovial Lymphocytes Synov Monos/Macrophage Synovial Fluid Comment Blood Type Antibody Screen Crossmatch BBK History Checked Assessment & Plan - Assessment and Plan (Free Text) Assessment: S/P REVISION OR RIGHT TKR TYPE 2 DM CHRONIC BRONCHITIS OVERWEIGHT Plan: CONTINUE GLUCOPHAGE, HCTZ AND PAIN MEDS FOR PHYSICAL THERAPY
--- NOTE | 2017-03-16 11:26 | RAD ---
PROCEDURE: Right Knee Radiographs. HISTORY: post op COMPARISON: None. FINDINGS: BONES: Status post right knee arthroplasty. Prosthesis grossly intact. No osseous fracture. Postoperative changes in anterior soft tissues. JOINTS: Normal. No osteoarthritis. JOINT EFFUSION: None. OTHER FINDINGS: None. IMPRESSION: Right knee arthroplasty.
--- NOTE | 2017-03-16 11:52 | CP.PCM.PN ---
Subjective - Date & Time of Evaluation Date of Evaluation: 03/16/17 Time of Evaluation: 11:00 - Subjective Subjective: No fever pain controlled Participated with PT no CP no SOB, no wheezing no abd pain Objective - Vital Signs/Intake and Output Vital Signs (last 24 hours): Temp Pulse Resp BP Pulse Ox 98.6 F 59 L 18 103/68 100 03/16/17 07:36 03/16/17 07:36 03/16/17 07:36 03/16/17 07:36 03/16/17 07:36 - Medications Medications: Current Medications Acetaminophen (Tylenol 325mg Tab) 650 mg PO Q6 PRN PRN Reason: Fever >100.4 F Docusate Sodium (Colace) 100 mg PO BID [facility] Last Admin: 03/16/17 08:53 Dose: 100 mg Enoxaparin Sodium (Lovenox) 40 mg SC DAILY [facility] PRN Reason: Protocol Folic Acid (Folic Acid) 1 mg PO DAILY [facility] Last Admin: 03/16/17 09:01 Dose: 1 mg Hydrochlorothiazide (Hydrodiuril) 25 mg PO DAILY [facility] Hydromorphone HCl (Dilaudid) 1 mg IVP Q3 PRN PRN Reason: Pain, severe (8-10) Last Admin: 03/16/17 10:15 Dose: 1 mg Lactated Ringer's (Lactated Ringer's) 1,000 mls @ 100 mls/hr IV .Q10H [facility] Last Admin: 03/16/17 08:59 Dose: 100 mls/hr Lactated Ringer's (Lactated Ringer's) 1,000 mls @ 100 mls/hr IV .Q10H [facility] Metformin HCl (Glucophage) 500 mg PO BID [facility] Ondansetron HCl (Zofran Inj) 4 mg IVP Q6 PRN PRN Reason: Nausea/Vomiting Oxycodone HCl (Oxycontin Extended Release Tab) 20 mg PO Q12 [facility] Last Admin: 03/16/17 10:14 Dose: 20 mg Pantoprazole Sodium (Protonix Ec Tab) 40 mg PO DAILY [facility] Last Admin: 03/16/17 09:05 Dose: 40 mg Pregabalin (Lyrica) 75 mg PO TID [facility] Last Admin: 03/16/17 09:05 Dose: 75 mg - Labs Labs: 03/16/17 06:20 03/16/17 06:20 PT 12.2 Seconds (9.8-13.1) 03/16/17 06:20 INR 1.2 (0.9-1.2) 03/16/17 06:20 - Constitutional Appears: No Acute Distress - Head Exam Head Exam: NORMAL INSPECTION, NORMOCEPHALIC - Eye Exam Eye Exam: EOMI, Normal appearance, PERRL Pupil Exam: NORMAL ACCOMODATION - ENT Exam ENT Exam: Mucous Membranes Moist, Normal External Ear Exam - Neck Exam Neck Exam: Full ROM. absent: Meningismus - Respiratory Exam Respiratory Exam: NORMAL BREATHING PATTERN. absent: Rales, Wheezes, Respiratory Distress - Cardiovascular Exam Cardiovascular Exam: REGULAR RHYTHM, +S1, +S2 - GI/Abdominal Exam GI & Abdominal Exam: Soft, Normal Bowel Sounds. absent: Tenderness - Extremities Exam Extremities Exam: Normal Capillary Refill. absent: Calf Tenderness Additional comments: Right knee with dressing - Back Exam Back Exam: Full ROM. absent: CVA tenderness (L), CVA tenderness (R) - Neurological Exam Neurological Exam: Alert, Awake, CN II-XII Intact, Oriented x3 - Psychiatric Exam Psychiatric exam: Normal Affect, Normal Mood - Skin Skin Exam: Dry, Normal Color, Warm Assessment and Plan - Assessment and Plan (Free Text) Assessment: 56 y/o female with PMH Obesity ,pre diabetic ,chronic knee and lower back pain, neuropathic pain, Chronic bronchitis presented via [facility] for Revision of TKR by Dr. Thompson. 1. Failed/Painful TKR s/p Revision of TKR, Right Revision TKR done by dr Thompson Pain Mgt PT/OT consult- plan for TCU vs [facility] 2. Pre diabetic Accuchecks and insulin coverage check Hgb A1c cont Metformin 3. Morbid obesity patient used to be on diet pills Belviq but has been not taking for the last 1 month follows up with an senior advisory 4. Chronic lower back pain pain medication and PT 5. Chronic Anemia unclear etiology Hgb 10.9 preop Transfused 2 units PRBC 6. Bronchitis stable duonebs prn 7. DVT prophylaxis Lovenox
[2017-03-16] MEDS: Albuterol-Ipratrop 3 mg / 0.5 (3 ml) UD INH PRN (12:52)
[2017-03-17] MEDS: Albuterol-Ipratrop 3 mg / 0.5 (3 ml) UD INH PRN ×2 (03:48→16:02)
[2017-03-17] MEDS: oxyCODONE 20 mg ER Tab (oxyCONTIN) PO SCH ×3 (08:16→17:14)
[2017-03-17] MEDS: Enoxaparin 40 mg Syringe SC SCH (08:18)
--- NOTE | 2017-03-17 08:19 | CP.PCM.PN ---
Subjective - Date & Time of Evaluation Date of Evaluation: 03/17/17 Time of Evaluation: 08:10 - Subjective Subjective: S- pt comfortable with post op incision discomfort Objective - Vital Signs/Intake and Output Vital Signs (last 24 hours): Temp Pulse Resp BP Pulse Ox 98.7 F 125 H 20 117/76 96 03/17/17 07:32 03/17/17 07:32 03/17/17 07:32 03/17/17 07:32 03/17/17 07:32 - Medications Medications: Current Medications Acetaminophen (Tylenol 325mg Tab) 650 mg PO Q6 PRN PRN Reason: Fever >100.4 F Albuterol/Ipratropium (Duoneb 3 Mg/0.5 Mg (3 Ml) Ud) 3 ml INH RQ4 PRN PRN Reason: Shortness of Breath Last Admin: 03/17/17 03:48 Dose: 3 ml Docusate Sodium (Colace) 100 mg PO BID [facility] Last Admin: 03/16/17 16:52 Dose: 100 mg Enoxaparin Sodium (Lovenox) 40 mg SC DAILY [facility] PRN Reason: Protocol Last Admin: 03/16/17 10:00 Dose: 40 mg Folic Acid (Folic Acid) 1 mg PO DAILY [facility] Last Admin: 03/16/17 09:01 Dose: 1 mg Hydrochlorothiazide (Hydrodiuril) 25 mg PO DAILY [facility] Hydromorphone HCl (Dilaudid) 1 mg IVP Q3 PRN PRN Reason: Pain, severe (8-10) Last Admin: 03/17/17 06:27 Dose: 1 mg Lactated Ringer's (Lactated Ringer's) 1,000 mls @ 100 mls/hr IV .Q10H [facility] Last Admin: 03/16/17 08:59 Dose: 100 mls/hr Lactated Ringer's (Lactated Ringer's) 1,000 mls @ 100 mls/hr IV .Q10H [facility] Metformin HCl (Glucophage) 500 mg PO BID [facility] Last Admin: 03/16/17 16:48 Dose: 500 mg Ondansetron HCl (Zofran Inj) 4 mg IVP Q6 PRN PRN Reason: Nausea/Vomiting Oxycodone HCl (Oxycontin Extended Release Tab) 20 mg PO Q12 [facility] Last Admin: 03/16/17 22:17 Dose: 20 mg Pantoprazole Sodium (Protonix Ec Tab) 40 mg PO DAILY [facility] Last Admin: 03/16/17 09:05 Dose: 40 mg Pregabalin (Lyrica) 75 mg PO TID [facility] Last Admin: 03/17/17 08:15 Dose: 75 mg Zolpidem Tartrate (Ambien) 5 mg PO HS PRN PRN Reason: Sleep Last Admin: 03/16/17 23:40 Dose: 5 mg - Labs Labs: 03/16/17 06:20 03/16/17 06:20 PT 12.2 Seconds (9.8-13.1) 03/16/17 06:20 INR 1.2 (0.9-1.2) 03/16/17 06:20 - Skin Additional comments: Objective systemic- wnl Musculoskekeltal stance/gait- defrred R knee immobilizer intact dressing dry and intact N/V intact no gross/progressive deficits Assessment and Plan - Assessment and Plan (Free Text) Assessment: A-= s/p complex revision TKR P- full weight bearing orthopedically stable for rehab transfer
[2017-03-17] MEDS: Pantoprazole 40 mg EC Tab PO SCH (08:20)
--- NOTE | 2017-03-17 11:42 | CP.PCM.PN ---
Subjective - Date & Time of Evaluation Date of Evaluation: 03/17/17 Time of Evaluation: 10:30 - Subjective Subjective: NO CHEST PAIN OR SOB JUST SURGICAL SITE PAIN Objective - Vital Signs/Intake and Output Vital Signs (last 24 hours): Temp Pulse Resp BP Pulse Ox 98.7 F 125 H 20 117/76 96 03/17/17 07:32 03/17/17 07:32 03/17/17 07:32 03/17/17 07:32 03/17/17 07:32 - Medications Medications: Current Medications Acetaminophen (Tylenol 325mg Tab) 650 mg PO Q6 PRN PRN Reason: Fever >100.4 F Albuterol/Ipratropium (Duoneb 3 Mg/0.5 Mg (3 Ml) Ud) 3 ml INH RQ4 PRN PRN Reason: Shortness of Breath Last Admin: 03/17/17 03:48 Dose: 3 ml Docusate Sodium (Colace) 100 mg PO BID [facility] Last Admin: 03/17/17 08:17 Dose: 100 mg Enoxaparin Sodium (Lovenox) 40 mg SC DAILY [facility] PRN Reason: Protocol Last Admin: 03/17/17 08:18 Dose: 40 mg Folic Acid (Folic Acid) 1 mg PO DAILY [facility] Last Admin: 03/17/17 08:19 Dose: 1 mg Hydrochlorothiazide (Hydrodiuril) 25 mg PO DAILY [facility] Hydromorphone HCl (Dilaudid) 1 mg IVP Q3 PRN PRN Reason: Pain, severe (8-10) Last Admin: 03/17/17 06:27 Dose: 1 mg Lactated Ringer's (Lactated Ringer's) 1,000 mls @ 100 mls/hr IV .Q10H [facility] Last Admin: 03/16/17 08:59 Dose: 100 mls/hr Lactated Ringer's (Lactated Ringer's) 1,000 mls @ 100 mls/hr IV .Q10H [facility] Metformin HCl (Glucophage) 500 mg PO BID [facility] Last Admin: 03/17/17 08:18 Dose: 500 mg Ondansetron HCl (Zofran Inj) 4 mg IVP Q6 PRN PRN Reason: Nausea/Vomiting Oxycodone HCl (Oxycontin Extended Release Tab) 20 mg PO Q12 [facility] Last Admin: 03/17/17 08:16 Dose: 20 mg Pantoprazole Sodium (Protonix Ec Tab) 40 mg PO DAILY [facility] Last Admin: 03/17/17 08:20 Dose: 40 mg Pregabalin (Lyrica) 75 mg PO TID [facility] Last Admin: 03/17/17 08:16 Dose: 75 mg Zolpidem Tartrate (Ambien) 5 mg PO HS PRN PRN Reason: Sleep Last Admin: 03/16/17 23:40 Dose: 5 mg - Labs Labs: 03/16/17 06:20 03/16/17 06:20 PT 12.2 Seconds (9.8-13.1) 03/16/17 06:20 INR 1.2 (0.9-1.2) 03/16/17 06:20 - Respiratory Exam Respiratory Exam: Clear to Ausculation Bilateral - Cardiovascular Exam Cardiovascular Exam: REGULAR RHYTHM, +S1, +S2 Assessment and Plan - Assessment and Plan (Free Text) Assessment: RIGHT TKR TYPE 2 DM Plan: CONTINUE GLUCOPHAGE, LOVENOX AND PAIN MEDS
[2017-03-17] MEDS: Mag&Al/Simet/Diphen/Lido 237 ML KIT PO SCH ×3 (15:54→21:03)
--- NOTE | 2017-03-17 17:20 | CP.PCM.PN ---
Subjective - Date & Time of Evaluation Date of Evaluation: 03/17/17 Time of Evaluation: 09:45 - Subjective Subjective: No fever Pt states her pain is controlled complains that she did not sleep well last night- got Ambien 5 mg but states this did not work and wants to take her own Ambiem 12.5 mg q hs ( family will bring in her med) no CP no SOB no abd pain complains of sores in her mouth. Objective - Vital Signs/Intake and Output Vital Signs (last 24 hours): Temp Pulse Resp BP Pulse Ox 99.1 F 97 H 18 113/71 98 03/17/17 16:11 03/17/17 16:11 03/17/17 16:11 03/17/17 16:11 03/17/17 16:11 - Medications Medications: Current Medications Acetaminophen (Tylenol 325mg Tab) 650 mg PO Q6 PRN PRN Reason: Fever >100.4 F Albuterol/Ipratropium (Duoneb 3 Mg/0.5 Mg (3 Ml) Ud) 3 ml INH RQ4 PRN PRN Reason: Shortness of Breath Last Admin: 03/17/17 16:02 Dose: 3 ml Docusate Sodium (Colace) 100 mg PO BID [facility] Last Admin: 03/17/17 17:07 Dose: 100 mg Enoxaparin Sodium (Lovenox) 40 mg SC DAILY [facility] PRN Reason: Protocol Last Admin: 03/17/17 08:18 Dose: 40 mg Folic Acid (Folic Acid) 1 mg PO DAILY [facility] Last Admin: 03/17/17 08:19 Dose: 1 mg Hydrochlorothiazide (Hydrodiuril) 25 mg PO DAILY [facility] Hydromorphone HCl (Dilaudid) 1 mg IVP Q3 PRN PRN Reason: Pain, severe (8-10) Last Admin: 03/17/17 15:50 Dose: 1 mg Lactated Ringer's (Lactated Ringer's) 1,000 mls @ 100 mls/hr IV .Q10H [facility] Last Admin: 03/16/17 08:59 Dose: 100 mls/hr Lactated Ringer's (Lactated Ringer's) 1,000 mls @ 100 mls/hr IV .Q10H [facility] Metformin HCl (Glucophage) 500 mg PO BID [facility] Last Admin: 03/17/17 17:10 Dose: 500 mg Ondansetron HCl (Zofran Inj) 4 mg IVP Q6 PRN PRN Reason: Nausea/Vomiting Oxycodone HCl (Oxycontin Extended Release Tab) 20 mg PO Q8 [facility] Last Admin: 03/17/17 17:14 Dose: 20 mg Pantoprazole Sodium (Protonix Ec Tab) 40 mg PO DAILY [facility] Last Admin: 03/17/17 08:20 Dose: 40 mg Pregabalin (Lyrica) 75 mg PO TID [facility] Last Admin: 03/17/17 17:15 Dose: 75 mg Saliva Substitute (First Magic Mouthwash) 5 ml PO QID [facility] Last Admin: 03/17/17 17:16 Dose: 5 ml Zolpidem Tartrate (Ambien) 5 mg PO HS PRN PRN Reason: Sleep Last Admin: 03/16/17 23:40 Dose: 5 mg - Labs Labs: 03/16/17 06:20 03/16/17 06:20 PT 12.2 Seconds (9.8-13.1) 03/16/17 06:20 INR 1.2 (0.9-1.2) 03/16/17 06:20 - Constitutional Appears: No Acute Distress - Head Exam Head Exam: NORMAL INSPECTION, NORMOCEPHALIC - Eye Exam Eye Exam: EOMI, Normal appearance, PERRL Pupil Exam: NORMAL ACCOMODATION - ENT Exam ENT Exam: Mucous Membranes Moist, Normal External Ear Exam - Neck Exam Neck Exam: Full ROM. absent: Meningismus - Respiratory Exam Respiratory Exam: NORMAL BREATHING PATTERN. absent: Rales, Wheezes, Respiratory Distress - Cardiovascular Exam Cardiovascular Exam: REGULAR RHYTHM, +S1, +S2 - GI/Abdominal Exam GI & Abdominal Exam: Soft, Normal Bowel Sounds. absent: Tenderness - Extremities Exam Extremities Exam: Normal Capillary Refill. absent: Calf Tenderness Additional comments: Right knee with dressing - Back Exam Back Exam: Full ROM. absent: CVA tenderness (L), CVA tenderness (R) - Neurological Exam Neurological Exam: Alert, Awake, CN II-XII Intact, Oriented x3 - Psychiatric Exam Psychiatric exam: Normal Affect, Normal Mood - Skin Skin Exam: Dry, Normal Color, Warm Assessment and Plan - Assessment and Plan (Free Text) Assessment: 56 y/o female with PMH Obesity ,pre diabetic ,chronic knee and lower back pain, neuropathic pain, Chronic bronchitis presented via [facility] for Revision of TKR by Dr. Thompson. 1. Failed/Painful TKR s/p Revision of TKR, Right Revision TKR done by dr Thompson on 03/15 Pain Mgt- pain controlled CPM PT/OT consult- plan for TCU vs [facility]- awaiting Workers Comp approval 2. Pre diabetic Accuchecks and insulin coverage check Hgb A1c cont Metformin 3. Morbid obesity patient used to be on diet pills Belviq but has been not taking for the last 1 month follows up with an tax record clerk 4. Chronic lower back pain pain medication and PT 5. Chronic Anemia Hgb 10.9 preop Transfused 2 units PRBC in the [place] 6. Bronchitis, chronic stable duonebs prn 7. Apthous Ulcer , mouth start magic Mouth wash 8. DVT prophylaxis Lovenox
[2017-03-17] MEDS ORDERED: ZOLPIDEM TARTRATE 12.5 MG PO PRN (17:23)
[2017-03-18] MEDS: oxyCODONE 20 mg ER Tab (oxyCONTIN) PO SCH ×3 (00:37→16:07)
[2017-03-18] MEDS: Albuterol-Ipratrop 3 mg / 0.5 (3 ml) UD INH PRN ×2 (00:48→07:25)
[2017-03-18] MEDS: Enoxaparin 40 mg Syringe SC SCH (08:20)
[2017-03-18] MEDS: Pantoprazole 40 mg EC Tab PO SCH (08:20)
[2017-03-18] MEDS: Mag&Al/Simet/Diphen/Lido 237 ML KIT PO SCH ×3 (08:21→16:08)
--- NOTE | 2017-03-18 08:47 | CP.PCM.PN ---
Subjective - Date & Time of Evaluation Date of Evaluation: 03/18/17 Time of Evaluation: 09:15 - Subjective Subjective: Patient seen and examined . Complains of pain to right knee . Participating with PT. Her left leg still feels numb Hemodynamically stable, afebrile. No acute issues overnight No BM since admission Objective - Vital Signs/Intake and Output Vital Signs (last 24 hours): Temp Pulse Resp BP Pulse Ox 99.2 F 108 H 18 116/78 97 03/18/17 07:22 03/18/17 07:22 03/18/17 07:22 03/18/17 07:22 03/18/17 07:22 - Medications Medications: Current Medications Acetaminophen (Tylenol 325mg Tab) 650 mg PO Q6 PRN PRN Reason: Fever >100.4 F Albuterol/Ipratropium (Duoneb 3 Mg/0.5 Mg (3 Ml) Ud) 3 ml INH RQ4 PRN PRN Reason: Shortness of Breath Last Admin: 03/18/17 07:25 Dose: 3 ml Docusate Sodium (Colace) 100 mg PO BID [facility] Last Admin: 03/18/17 08:20 Dose: 100 mg Enoxaparin Sodium (Lovenox) 40 mg SC DAILY [facility] PRN Reason: Protocol Last Admin: 03/18/17 08:20 Dose: 40 mg Folic Acid (Folic Acid) 1 mg PO DAILY [facility] Last Admin: 03/18/17 08:20 Dose: 1 mg Home Med (Zolpidem Tartrate [Ambien Cr]) 12.5 mg PO HS PRN PRN Reason: Sleep Hydrochlorothiazide (Hydrodiuril) 25 mg PO DAILY [facility] Hydromorphone HCl (Dilaudid) 1 mg IVP Q3 PRN PRN Reason: Pain, severe (8-10) Last Admin: 03/18/17 06:03 Dose: 1 mg Lactated Ringer's (Lactated Ringer's) 1,000 mls @ 100 mls/hr IV .Q10H [facility] Last Admin: 03/16/17 08:59 Dose: 100 mls/hr Lactated Ringer's (Lactated Ringer's) 1,000 mls @ 100 mls/hr IV .Q10H [facility] Last Admin: 03/18/17 08:21 Dose: Not Given Metformin HCl (Glucophage) 500 mg PO BID [facility] Last Admin: 03/18/17 08:20 Dose: 500 mg Ondansetron HCl (Zofran Inj) 4 mg IVP Q6 PRN PRN Reason: Nausea/Vomiting Oxycodone HCl (Oxycontin Extended Release Tab) 20 mg PO Q8 [facility] Last Admin: 03/18/17 08:18 Dose: 20 mg Pantoprazole Sodium (Protonix Ec Tab) 40 mg PO DAILY [facility] Last Admin: 03/18/17 08:20 Dose: 40 mg Pregabalin (Lyrica) 75 mg PO TID [facility] Last Admin: 03/18/17 08:18 Dose: 75 mg Saliva Substitute (First Magic Mouthwash) 5 ml PO QID [facility] Last Admin: 03/18/17 08:21 Dose: 5 ml - Labs Labs: 03/16/17 06:20 03/16/17 06:20 PT 12.2 Seconds (9.8-13.1) 03/16/17 06:20 INR 1.2 (0.9-1.2) 03/16/17 06:20 - Constitutional Appears: Non-toxic, No Acute Distress, Other (obese) - Head Exam Head Exam: ATRAUMATIC, NORMAL INSPECTION, NORMOCEPHALIC - Eye Exam Eye Exam: EOMI, Normal appearance, PERRL Pupil Exam: NORMAL ACCOMODATION - ENT Exam ENT Exam: Mucous Membranes Moist, Normal Exam - Neck Exam Neck Exam: Full ROM, Normal Inspection - Respiratory Exam Respiratory Exam: Clear to Ausculation Bilateral, NORMAL BREATHING PATTERN. absent: Rales, Rhonchi, Wheezes - Cardiovascular Exam Cardiovascular Exam: REGULAR RHYTHM, RRR, +S1, +S2. absent: JVD - GI/Abdominal Exam GI & Abdominal Exam: Soft, Normal Bowel Sounds. absent: Distended, Guarding, Tenderness, Rebound - Rectal Exam Rectal Exam: Deferred - Extremities Exam Extremities Exam: Normal Capillary Refill, Normal Inspection. absent: Pedal Edema Additional comments: right knee with devika bandage dressing in place - Back Exam Back Exam: NORMAL INSPECTION - Neurological Exam Neurological Exam: Alert, Awake, CN II-XII Intact, Oriented x3 - Psychiatric Exam Psychiatric exam: Normal Affect, Normal Mood - Skin Skin Exam: Dry, Intact, Normal Color, Warm Assessment and Plan - Assessment and Plan (Free Text) Assessment: 56 y/o female with PMH Obesity ,pre diabetic ,chronic knee and lower back pain, neuropathic pain, Chronic bronchitis presented via [facility] for Revision of TKR by Dr. Thompson.Today post op 3 , participating with PT . 1. s/p Revision of TKR, Right post op day 3 Revision TKR done by Dr Thompson on 03/15 Participating with PT and using CPM machine as ordered by ortho Continue pain management with Oxycodone andf lyrica for neuropathic pain plan for TCU vs [facility]- awaiting Workers Comp approval DVt prophylaxis with lovenox 2. Pre diabetic Accuchecks and insulin coverage cont Metformin 3. Morbid obesity patient used to be on diet pills Belviq but has been not taking for the last 1 month follows up with an glass designer 4. Chronic lower back pain pain medication and PT 5. Chronic Anemia and anemia of acute blood loss during surgery Hgb 10.9 preop and 9.9 post op Transfused 2 units PRBC in the OR 6. Bronchitis, chronic stable duonebs prn 7. Apthous Ulcer , mouth started magic Mouth wash 8. Constipation on Colace start Lactulose PRN 9. DVT prophylaxis Lovenox
--- NOTE | 2017-03-18 09:43 | CP.PCM.PN ---
Subjective - Date & Time of Evaluation Date of Evaluation: 03/18/17 Time of Evaluation: 09:00 - Subjective Subjective: NO CHEST PAIN OR SIGNIFICANT SOB HAS SURGICAL SITE KNEE PAIN Objective - Vital Signs/Intake and Output Vital Signs (last 24 hours): Temp Pulse Resp BP Pulse Ox 99.2 F 108 H 18 116/78 97 03/18/17 07:22 03/18/17 07:22 03/18/17 07:22 03/18/17 07:22 03/18/17 07:22 - Medications Medications: Current Medications Acetaminophen (Tylenol 325mg Tab) 650 mg PO Q6 PRN PRN Reason: Fever >100.4 F Albuterol/Ipratropium (Duoneb 3 Mg/0.5 Mg (3 Ml) Ud) 3 ml INH RQ4 PRN PRN Reason: Shortness of Breath Last Admin: 03/18/17 07:25 Dose: 3 ml Docusate Sodium (Colace) 100 mg PO BID [facility] Last Admin: 03/18/17 08:20 Dose: 100 mg Enoxaparin Sodium (Lovenox) 40 mg SC DAILY [facility] PRN Reason: Protocol Last Admin: 03/18/17 08:20 Dose: 40 mg Folic Acid (Folic Acid) 1 mg PO DAILY [facility] Last Admin: 03/18/17 08:20 Dose: 1 mg Home Med (Zolpidem Tartrate [Ambien Cr]) 12.5 mg PO HS PRN PRN Reason: Sleep Hydrochlorothiazide (Hydrodiuril) 25 mg PO DAILY [facility] Hydromorphone HCl (Dilaudid) 1 mg IVP Q3 PRN PRN Reason: Pain, severe (8-10) Last Admin: 03/18/17 08:51 Dose: 1 mg Lactated Ringer's (Lactated Ringer's) 1,000 mls @ 100 mls/hr IV .Q10H [facility] Last Admin: 03/16/17 08:59 Dose: 100 mls/hr Lactated Ringer's (Lactated Ringer's) 1,000 mls @ 100 mls/hr IV .Q10H [facility] Last Admin: 03/18/17 08:21 Dose: Not Given Lactulose (Enulose) 20 gm PO DAILY PRN PRN Reason: Constipation Metformin HCl (Glucophage) 500 mg PO BID [facility] Last Admin: 08/31/17 08:20 Dose: 500 mg Ondansetron HCl (Zofran Inj) 4 mg IVP Q6 PRN PRN Reason: Nausea/Vomiting Oxycodone HCl (Oxycontin Extended Release Tab) 20 mg PO Q8 [facility] Last Admin: 03/18/17 08:18 Dose: 20 mg Pantoprazole Sodium (Protonix Ec Tab) 40 mg PO DAILY [facility] Last Admin: 03/18/17 08:20 Dose: 40 mg Pregabalin (Lyrica) 75 mg PO TID [facility] Last Admin: 03/18/17 08:18 Dose: 75 mg Saliva Substitute (First Magic Mouthwash) 5 ml PO QID [facility] Last Admin: 03/18/17 08:21 Dose: 5 ml - Labs Labs: 03/16/17 06:20 03/16/17 06:20 PT 12.2 Seconds (9.8-13.1) 03/16/17 06:20 INR 1.2 (0.9-1.2) 03/16/17 06:20 - Respiratory Exam Respiratory Exam: Clear to Ausculation Bilateral - Cardiovascular Exam Cardiovascular Exam: REGULAR RHYTHM, +S1, +S2 Assessment and Plan - Assessment and Plan (Free Text) Assessment: S/P REVISION OR RIGHT TKR DM COPD Plan: CONTINUE PRESENT TREATMENT CONTINUE REHAB
[2017-03-18 10:54] LABS: HEMATOCRIT 30.6 % (34.0-47.0); MEAN CELL VOLUME 90.1 fl (81.0-99.0); MEAN CORPUSCULAR HEMOGLOBIN 29.2 pg (27.0-31.0); MEAN CORPUSCULAR HGB CONC 32.4 g/dL (33.0-37.0); RED CELL DISTRIBUTION WIDTH 14.3 % (11.5-14.5); WHITE BLOOD COUNT 8.7 K/uL (4.8-10.8)
[2017-03-18 11:10] LABS: BLOOD UREA NITROGEN 6 mg/dl (7-17); CALCIUM 8.5 mg/dL (8.4-10.2); CARBON DIOXIDE 30 mmol/L (22-30); CHLORIDE 102 mmol/L (98-107); GFR AFRICAN-AMERICAN > 60; GLUCOSE,RANDOM 100 mg/dL (65-105); POTASSIUM 3.6 MMOL/L (3.6-5.0); SODIUM 138 mmol/l (132-148)
[2017-03-18] MEDS ORDERED: Oxycodone/Acetaminophen 5/325 mg Tab PO PRN (12:39)
[2017-03-18] MEDS: Lactated Ringer's 1,000 ML IV SCH (14:56)
--- NOTE | 2017-03-18 15:40 | CP.PCM.DIS ---
Provider - Provider Date of Admission: 03/15/17 08:05 Attending physician: Allyson Andrade MD Primary care physician: Lalita Beavers MD Consults: ortho consult cardiology consult PT/OT SW Time Spent in preparation of Discharge (in minutes): 20 Hospital Course - Lab Results Lab Results: Micro Results 03/15/17 10:17 Knee - Right Gram Stain - Final 03/15/17 10:17 Knee - Right Wound Culture - Preliminary No growth. 03/15/17 10:17 Knee - Right Gram Stain - Final 03/15/17 10:17 Knee - Right Wound Culture - Preliminary No growth. 03/15/17 10:17 Knee - Right Gram Stain - Final 03/15/17 10:17 Knee - Right Wound Culture - Preliminary No growth. 03/15/17 10:17 Knee - Right Gram Stain - Final 03/15/17 10:17 Knee - Right Wound Culture - Preliminary No growth. 03/15/17 10:17 Knee - Right Gram Stain - Final 03/15/17 10:17 Knee - Right Wound Culture - Preliminary No growth. 03/15/17 10:17 Knee - Right Gram Stain - Final 03/15/17 10:17 Knee - Right Anaerobic Culture - Final NO ANAEROBES ISOLATED. 03/15/17 10:17 Knee - Right Wound Culture - Preliminary No growth. 03/15/17 10:17 Knee - Right Gram Stain - Final 03/15/17 10:17 Knee - Right Wound Culture - Preliminary No growth. 03/15/17 10:17 Knee - Right Gram Stain - Final 03/15/17 10:17 Knee - Right Wound Culture - Preliminary No growth. 03/15/17 14:58 Synovial Fluid Gram Stain - Final 03/15/17 14:58 Synovial Fluid Body Fluid Culture - Preliminary NO GROWTH AFTER 3 DAYS 03/15/17 14:58 Other: Please Indicate Anaerobic Culture - Final NO ANAEROBES ISOLATED. 03/15/17 14:58 Other: Please Indicate Mycobacterial Culture - Preliminary 03/15/17 14:58 Knee Right Fungal Culture - Preliminary Most Recent Lab Values WBC 8.7 K/uL (4.8-10.8) 03/18/17 09:35 RBC 3.39 Mil/uL (3.80-5.20) L 03/18/17 09:35 Hgb 9.9 g/dL (12.0-16.0) L 03/18/17 09:35 Hct 30.6 % (34.0-47.0) L 03/18/17 09:35 MCV 90.1 fl (81.0-99.0) D 03/18/17 09:35 MCH 29.2 pg (27.0-31.0) 03/18/17 09:35 MCHC 32.4 g/dL (33.0-37.0) L 03/18/17 09:35 RDW 14.3 % (11.5-14.5) 03/18/17 09:35 Plt Count 165 K/uL (130-400) 03/18/17 09:35 MPV 8.1 fl (7.2-11.7) 03/16/17 06:20 Neut % (Auto) 78.0 % (50.0-75.0) H 03/16/17 06:20 Lymph % (Auto) 12.9 % (20.0-40.0) L 03/16/17 06:20 [place]on % (Auto) 9.0 % (0.0-10.0) 03/16/17 06:20 Eos % (Auto) 0.0 % (0.0-4.0) 03/16/17 06:20 Baso % (Auto) 0.1 % (0.0-2.0) 03/16/17 06:20 Neut # 6.6 K/uL (1.8-7.0) 03/16/17 06:20 Lymph # 1.1 K/uL (1.0-4.3) 03/16/17 06:20 Haralson # 0.8 K/uL (0.0-0.8) 03/16/17 06:20 Eos # 0.0 K/uL (0.0-0.7) 03/16/17 06:20 Baso # 0.0 K/uL (0.0-0.2) 03/16/17 06:20 PT 12.2 Seconds (9.8-13.1) 03/16/17 06:20 INR 1.2 (0.9-1.2) 03/16/17 06:20 Sodium 138 mmol/l (132-148) 03/18/17 09:35 Potassium 3.6 MMOL/L (3.6-5.0) 03/18/17 09:35 Chloride 102 mmol/L (98-107) 03/18/17 09:35 Carbon Dioxide 30 mmol/L (22-30) 03/18/17 09:35 Anion Gap 9 (10-20) L 03/18/17 09:35 BUN 6 mg/dl (7-17) L 03/18/17 09:35 Creatinine 0.8 mg/dL (0.7-1.2) 03/18/17 09:35 Est GFR ( Amer) > 60 03/18/17 09:35 Est GFR (Non-Af Amer) > 60 03/18/17 09:35 POC Glucose (mg/dL) 92 mg/dL (65-110) 03/18/17 10:46 Random Glucose 100 mg/dL (65-105) 03/18/17 09:35 Calcium 8.5 mg/dL (8.4-10.2) 03/18/17 09:35 Fluid Type Synovial fluid 03/15/17 14:58 Synovial WBC 10.0 /mm3 (0.0-150.0) 03/15/17 14:58 Synovial RBC 1337.5 /mm3 (0.0-0.0) H 03/15/17 14:58 Synovial Neutrophils 15.0 % (0-0) H 03/15/17 14:58 Synovial Lymphocytes 53.0 % (0-0) H 03/15/17 14:58 Synov Monos/Macrophage 32 % (0-0) H 03/15/17 14:58 Synovial Fluid Comment None 03/15/17 14:58 Blood Type A POSITIVE 03/15/17 07:40 Antibody Screen Negative 03/15/17 07:40 Crossmatch See Detail 03/15/17 07:40 BBK History Checked Patient has bt 03/15/17 07:40 - Hospital Course Hospital Course: 56 y/o female with PMH Obesity ,pre diabetic ,chronic knee and lower back pain, neuropathic pain, Chronic bronchitis presented via [facility] for Revision of TKR by Dr. Thompson.Today post op 3 , participating with PT . \ Will d/c to TCU 1. s/p Revision of TKR, Right post op day 3 Revision TKR done by Dr Thompson on 8/28 Participating with PT and using CPM machine as ordered by ortho Continue pain management with Oxycodone and lyrica for neuropathic pain d/c to TCU DVT prophylaxis with lovenox 2. Pre diabetic Accuchecks and insulin coverage cont Metformin 3. Morbid obesity patient used to be on diet pills Belviq but has been not taking for the last 1 month follows up with an head operator 4. Chronic lower back pain pain medication and PT 5. Chronic Anemia and anemia of acute blood loss during surgery Hgb 10.9 preop and 9.9 post op Transfused 2 units PRBC in the OR 6. Bronchitis, chronic stable duonebs prn 7. Apthous Ulcer , mouth started magic Mouth wash 8. Constipation on Colace start Lactulose PRN 9. DVT prophylaxis Lovenox Discharge Exam - Head Exam Head Exam: ATRAUMATIC, NORMAL INSPECTION, NORMOCEPHALIC Additional comments: obese - Eye Exam Eye Exam: EOMI, Normal appearance, PERRL Pupil Exam: NORMAL ACCOMODATION - ENT Exam ENT Exam: Normal Exam - Neck Exam Neck exam: Full Rom, Normal Inspection - Respiratory Exam Respiratory Exam: Clear to PA & Lateral, NORMAL BREATHING PATTERN. absent: Rales, Rhonchi, Wheezes - Cardiovascular Exam Cardiovascular Exam: REGULAR RHYTHM, RRR, +S1, +S2. absent: JVD - GI/Abdominal Exam GI & Abdominal Exam: Normal Bowel Sounds, Soft. absent: Guarding, Hypoactive Bowel Sounds, Rebound, Tenderness - Rectal Exam Rectal Exam: Deferred - Extremities Exam Extremities exam: normal capillary refill, normal inspection, pedal pulses present Additional comments: right knee with devika dressing in place - Back Exam Back exam: NORMAL INSPECTION - Neurological Exam Neurological exam: Alert, CN II-XII Intact - Psychiatric Exam Psychiatric exam: Normal Affect, Normal Mood - Skin Skin Exam: Dry, Intact, Normal Color, Warm Discharge Plan - Follow Up Plan Condition: GOOD Disposition: HOME/ ROUTINE Patient education suggested?: Yes Instructions: Precautions after Total Joint Replacement Surgery (DC) Referrals: Lalita Beavers MD [Primary Care Provider] - Reagan Thompson III, MD [Staff Provider] -
[2017-03-18 15:56] VITALS: BP 110/63; RESP 20; TEMP 98.8; O2SAT 94
[2017-03-18 16:04] VITALS: PULSE 106
== END 2017-03-18 17:17 | DRG 467 ==
LOC: H.OPSURG 06:15 → H.MEDSURG1 08:05
PROVIDERS: ADMIT Hospitalist; ATTEND Hospitalist
PROC: 0SNC0ZZ Release Right Knee Joint, Open Approach (ICD-10-PCS; 2017-03-15)
PROC: 0LQQ0ZZ Repair Right Knee Tendon, Open Approach (ICD-10-PCS; 2017-03-15)
PROC: 30233N1 Transfusion of Nonautologous Red Blood Cells into Peripheral Vein, Percutaneous Approach (ICD-10-PCS; 2017-03-15)
PROC: 3E0T3BZ Introduction of Anesthetic Agent into Peripheral Nerves and Plexi, Percutaneous Approach (ICD-10-PCS; 2017-03-15)
PROC: 3E0T3BZ Introduction of Anesthetic Agent into Peripheral Nerves and Plexi, Percutaneous Approach (ICD-10-PCS; 2017-03-15)
PROC: 0SPC0JZ Removal of Synthetic Substitute from Right Knee Joint, Open Approach (ICD-10-PCS; principal; 2017-03-15 12:45)
PROC: 0SRC0J9 Replacement of Right Knee Joint with Synthetic Substitute, Cemented, Open Approach (ICD-10-PCS; 2017-03-15 12:45)
PROC: 0SBC0ZZ Excision of Right Knee Joint, Open Approach (ICD-10-PCS; 2017-03-15 12:45)
DX: T84.84XA Pain due to internal orthopedic prosthetic devices, implants and grafts, initial encounter (principal); Z68.41 Body mass index [BMI] 40.0-44.9, adult; D62 Acute posthemorrhagic anemia; T84.022A Instability of internal right knee prosthesis, initial encounter; T84.032A Mechanical loosening of internal right knee prosthetic joint, initial encounter; E66.01 Morbid (severe) obesity due to excess calories; G62.9 Polyneuropathy, unspecified; Z96.651 Presence of right artificial knee joint; Y79.2 Prosthetic and other implants, materials and accessory orthopedic devices associated with adverse incidents; Y83.8 Other surgical procedures as the cause of abnormal reaction of the patient, or of later complication, without mention of misadventure at the time of the procedure; M65.9 Synovitis and tenosynovitis, unspecified; G89.29 Other chronic pain; J42 Unspecified chronic bronchitis; M24.561 Contracture, right knee; M21.061 Valgus deformity, not elsewhere classified, right knee; K12.0 Recurrent oral aphthae; D64.9 Anemia, unspecified; R73.03 Prediabetes; K59.00 Constipation, unspecified

== ENCOUNTER 2017-03-18 15:02 | Inpatient (IN) | payer OTHER, BC ==
[2017-03-05 09:56] VITALS: BMI 41.5
[2017-03-18 18:36] VITALS: RESP 20
[2017-03-18] MEDS: oxyCODONE 10 mg Immediate Release Tab PO PRN (20:36)
[2017-03-18] MEDS ORDERED: oxyCODONE 10 mg Immediate Release Tab PO SCH (21:00)
[2017-03-18] MEDS: Mag&Al/Simet/Diphen/Lido 237 ML KIT PO SCH (21:50)
[2017-03-19] MEDS: oxyCODONE 20 mg ER Tab (oxyCONTIN) PO SCH ×3 (00:20→17:36)
[2017-03-19 06:35] LABS: HEMATOCRIT 27.3 % (34.0-47.0); MEAN CELL VOLUME 89.5 fl (81.0-99.0); MEAN CORPUSCULAR HEMOGLOBIN 29.5 pg (27.0-31.0); RED CELL DISTRIBUTION WIDTH 14.2 % (11.5-14.5); WHITE BLOOD COUNT 7.4 K/uL (4.8-10.8)
[2017-03-19] MEDS: oxyCODONE 10 mg Immediate Release Tab PO PRN ×2 (06:44→06:49)
[2017-03-19 06:48] LABS: BLOOD UREA NITROGEN 5 mg/dl (7-17); CALCIUM 8.4 mg/dL (8.4-10.2); CARBON DIOXIDE 28 mmol/L (22-30); CHLORIDE 104 mmol/L (98-107); GFR AFRICAN-AMERICAN > 60; GLUCOSE,RANDOM 104 mg/dL (65-105); POTASSIUM 3.8 MMOL/L (3.6-5.0); SODIUM 139 mmol/l (132-148)
[2017-03-19] MEDS: Pantoprazole 40 mg EC Tab PO SCH (09:58)
[2017-03-19] MEDS: Enoxaparin 40 mg Syringe SC SCH (09:59)
[2017-03-19] MEDS: Mag&Al/Simet/Diphen/Lido 237 ML KIT PO SCH ×4 (10:05→21:36)
[2017-03-19] MEDS: oxyCODONE 5 mg Immediate Release Tab PO PRN ×3 (11:45→20:01)
--- NOTE | 2017-03-19 14:48 | CP.PCM.HP ---
History of Present Illness - History of Present Illness History of Present Illness: 56 yo female with history of obesity, COPD and chronic knee and back pain had TKR of the right knee after sustaining right knee injury at work 4 yrs ago in an elevator accident. Since surgery, patient had gait instability and progressive worsening of the pain on her right knee. Patient had revision of right TKR 4 days ago and now admitted in TCU for continuation of PT/OT Present on Admission - Present on Admission Any Indicators Present on Admission: No History of DVT/PE: No History of Uncontrolled Diabetes: No Urinary Catheter: No Decubitus Ulcer Present: No Review of Systems - Review of Systems All systems: reviewed and no additional remarkable complaints except (aside from those mentioned above, 12 point system review were negative by me) Past Patient History - Infectious Disease Hx of Infectious Diseases: None - Tetanus Immunizations Tetanus Immunization: Unknown - Past Medical History & Family History Past Medical History?: Yes - Past Social History Smoking Status: Never Smoked Alcohol: None Drugs: Denies - CARDIAC Hx Cardiac Disorders: No - PULMONARY Hx Respiratory Disorders: Yes Hx Bronchitis: Yes - NEUROLOGICAL Hx Neurological Disorder: Yes Other/Comment: NUMBENESS TINGLING LEGS AND BACK - HEENT Hx HEENT Problems: No - RENAL Hx Chronic Kidney Disease: No - ENDOCRINE/METABOLIC Hx Diabetes Mellitus Type 2: Yes - HEMATOLOGICAL/ONCOLOGICAL Hx Blood Disorders: Yes Hx Anemia: Yes Hx Gum Bleeding: Yes - INTEGUMENTARY Hx Dermatological Problems: No - MUSCULOSKELETAL/RHEUMATOLOGICAL Hx Musculoskeletal Disorders: Yes Hx Arthritis: Yes Hx Back Pain: Yes Hx Falls: No Other/Comment: MUSCLE WEAKNESS .LIMIT JOINTMOTION - GASTROINTESTINAL Hx Gastrointestinal Disorders: Yes Hx Gastroesophageal Reflux: Yes - GENITOURINARY/GYNECOLOGICAL Hx Genitourinary Disorders: No - PSYCHIATRIC Hx Psychophysiologic Disorder: No Hx Substance Use: No - SURGICAL HISTORY Hx Orthopedic Surgery: Yes (RIGHT KNEE REPLACEMENT, RIGHT HIP SX, LEFT MENSICUS REPAIR) - ANESTHESIA Hx Anesthesia: Yes Hx Anesthesia Reactions: No Hx Malignant Hyperthermia: No Meds Allergies/Adverse Reactions: Allergies Allergy/AdvReac Type Severity Reaction Status Date / Time seasonal Allergy ITCHING Uncoded 03/18/17 16:55 Physical Exam - Constitutional Appears: No Acute Distress, Other (obese) - Head Exam Head Exam: ATRAUMATIC - Eye Exam Eye Exam: absent: Scleral icterus - ENT Exam ENT Exam: Mucous Membranes Moist - Neck Exam Neck exam: Negative for: Meningismus - Respiratory Exam Respiratory Exam: absent: Rhonchi, Wheezes, Respiratory Distress - Cardiovascular Exam Cardiovascular Exam: REGULAR RHYTHM, +S1, +S2 - GI/Abdominal Exam GI & Abdominal Exam: Soft. absent: Tenderness - Rectal Exam Rectal Exam: Deferred - Extremities Exam Extremities exam: Positive for: joint swelling (right knee swelling with limited ROM) - Neurological Exam Neurological exam: Alert, Oriented x3 - Psychiatric Exam Psychiatric exam: Normal Affect - Skin Skin Exam: Dry, Intact Results - Vital Signs Recent Vital Signs: Last Vital Signs Temp 98.2 F 03/18/17 20:16 Pulse 94 H 03/19/17 10:52 Resp 20 03/18/17 20:16 BP 124/54 L 03/19/17 10:52 Pulse Ox 99 03/19/17 10:52 - Labs Result Diagrams: 03/19/17 06:15 03/19/17 06:15 Labs: Laboratory Results - last 24 hr 03/18/17 03/19/17 03/19/17 20:55 06:06 06:15 WBC 7.4 RBC 3.05 L Hgb 9.0 L Hct 27.3 L MCV 89.5 MCH 29.5 MCHC 33.0 RDW 14.2 Plt Count 191 Sodium Potassium Chloride Carbon Dioxide Anion Gap BUN Creatinine Est GFR ( Amer) Est GFR (Non-Af Amer) POC Glucose (mg/dL) 105 112 H Random Glucose Calcium 03/19/17 03/19/17 06:15 11:08 WBC RBC Hgb Hct MCV MCH MCHC RDW Plt Count Sodium 139 Potassium 3.8 Chloride 104 Carbon Dioxide 28 Anion Gap 11 BUN 5 L Creatinine 0.8 Est GFR ( Amer) > 60 Est GFR (Non-Af Amer) > 60 POC Glucose (mg/dL) 85 Random Glucose 104 Calcium 8.4 Assessment & Plan - Assessment and Plan (Free Text) Assessment: 56 yo female with history of obesity, COPD and chronic knee and back pain had TKR of the right knee after sustaining right knee injury at work 4 yrs ago in an elevator accident. Since surgery, patient had gait instability and progressive worsening of the pain on her right knee. Patient had revision of right TKR 4 days ago and now admitted in TCU for continuation of PT/OT 1. s/p Revision of TKR, Right POD# 4 doing well with PT continue pain management with Oxycodone and Lyrica for neuropathic pain 2. Pre diabetic Accuchecks and insulin coverage continue Metformin 500mg PO BID 3. Morbid obesity follows up with an management coordinator 4. Chronic lower back pain continue pain medication and PT 5. Chronic Anemia and anemia of acute blood loss during surgery Hgb 9.1 received 2 units PRBC during surgery 6. COPD asymptomatic Duonebs prn for SOB/wheezing 7. Constipation on Colace start Lactulose PRN 8. DVT prophylaxis Lovenox 40mg SC daily
--- NOTE | 2017-03-19 17:36 | CP.PCM.PN ---
Subjective - Date & Time of Evaluation Date of Evaluation: 03/19/17 Time of Evaluation: 16:30 - Subjective Subjective: Patient has been transferred to TCU, s/p right TKR. Prior to transfer, she had done well on a regimen of Oxycontin 20mg q9h and Dilaudid 1mg IV PRN. However, since admission to TCU, she's complained about pain despite PO regimen and not able to get medication prior to PT. I discussed the ramifications of opioid therapy, and the need to understand the logistics of receiving PRN pain medication in the hospital setting, and she's agreeable. Objective - Vital Signs/Intake and Output Vital Signs (last 24 hours): Temp Pulse Resp BP Pulse Ox 98 F 88 20 139/81 100 03/19/17 17:12 03/19/17 17:12 03/19/17 17:12 03/19/17 17:12 03/19/17 17:12 - Medications Medications: Current Medications Acetaminophen (Tylenol 325mg Tab) 650 mg PO Q6 PRN PRN Reason: Fever >100.4 F Albuterol/Ipratropium (Duoneb 3 Mg/0.5 Mg (3 Ml) Ud) 3 ml INH RQ4 PRN PRN Reason: Shortness of Breath Docusate Sodium (Colace) 100 mg PO BID [facility] Last Admin: 03/19/17 09:58 Dose: 100 mg Enoxaparin Sodium (Lovenox) 40 mg SC DAILY [facility] PRN Reason: Protocol Last Admin: 03/19/17 09:59 Dose: 40 mg Folic Acid (Folic Acid) 1 mg PO DAILY [facility] Last Admin: 03/19/17 09:58 Dose: 1 mg Hydrochlorothiazide (Hydrodiuril) 25 mg PO DAILY [facility] Last Admin: 03/19/17 09:58 Dose: 25 mg Lactulose (Enulose) 20 gm PO DAILY PRN PRN Reason: Constipation Last Admin: 03/18/17 21:54 Dose: 20 gm Metformin HCl (Glucophage) 500 mg PO BID [facility] Last Admin: 03/19/17 09:58 Dose: 500 mg Ondansetron HCl (Zofran Inj) 4 mg IVP Q6 PRN PRN Reason: Nausea/Vomiting Oxycodone HCl (Oxycontin Extended Release Tab) 20 mg PO Q8 [facility] Last Admin: 03/19/17 10:02 Dose: 20 mg Oxycodone HCl (Oxycodone Immediate Release Tab) 10 mg PO Q4 PRN PRN Reason: Pain, severe (8-10) Last Admin: 03/19/17 15:58 Dose: 10 mg Pantoprazole Sodium (Protonix Ec Tab) 40 mg PO DAILY [facility] Last Admin: 03/19/17 09:58 Dose: 40 mg Pregabalin (Lyrica) 75 mg PO TID [facility] Last Admin: 03/19/17 12:19 Dose: 75 mg Saliva Substitute (First Magic Mouthwash) 5 ml PO QID [facility] Last Admin: 03/19/17 12:15 Dose: 5 ml Zolpidem Tartrate (Ambien) 5 mg PO HS PRN PRN Reason: Sleep Last Admin: 03/18/17 21:58 Dose: 5 mg - Labs Labs: 03/19/17 06:15 03/19/17 06:15 - Respiratory Exam Respiratory Exam: NORMAL BREATHING PATTERN - Cardiovascular Exam Cardiovascular Exam: REGULAR RHYTHM - Extremities Exam Additional comments: Right lower leg in dressing/bandage. Assessment and Plan (1) Knee pain Assessment & Plan: 56yo woman w/ chronic pain, s/p right TKR. On Percocet 10/325mg q8 PRN at home , now on Oxycontin 20mg q8h and Oxycodone 10mg q4h PRN. - continue Oxycontin q8h + Oxycodone q4h PRN, patient encouraged to communicate with the nursing and therapy staff to time the medication prior to therpay - if pain control is inadequate at rest, consider increasing Lyrica to 100mg q8h , increasing Oxycodone IR to 15mg q4h PRN Status: Acute
[2017-03-20] MEDS: oxyCODONE 5 mg Immediate Release Tab PO PRN ×6 (00:10→21:16)
[2017-03-20] MEDS: oxyCODONE 20 mg ER Tab (oxyCONTIN) PO SCH ×3 (01:20→16:36)
[2017-03-20] MEDS: Albuterol-Ipratrop 3 mg / 0.5 (3 ml) UD INH PRN (05:39)
[2017-03-20] MEDS: Enoxaparin 40 mg Syringe SC SCH (09:29)
[2017-03-20] MEDS: Pantoprazole 40 mg EC Tab PO SCH (09:30)
[2017-03-20] MEDS: Mag&Al/Simet/Diphen/Lido 237 ML KIT PO SCH ×4 (10:51→21:11)
[2017-03-20] MEDS ORDERED: Albuterol HFA 90 mcg/actuation (8 g) IH PRN (10:58)
[2017-03-20 12:40] LABS: HEMATOCRIT 31.6 % (34.0-47.0); MEAN CORPUSCULAR HEMOGLOBIN 28.7 pg (27.0-31.0); MEAN CORPUSCULAR HGB CONC 31.9 g/dL (33.0-37.0); RED CELL DISTRIBUTION WIDTH 14.1 % (11.5-14.5); WHITE BLOOD COUNT 6.5 K/uL (4.8-10.8)
[2017-03-20 12:55] LABS: BLOOD UREA NITROGEN 9 mg/dl (7-17); CALCIUM 9.3 mg/dL (8.4-10.2); CARBON DIOXIDE 27 mmol/L (22-30); CHLORIDE 99 mmol/L (98-107); GFR AFRICAN-AMERICAN > 60; GLUCOSE,RANDOM 128 mg/dL (65-105); POTASSIUM 3.8 MMOL/L (3.6-5.0); SODIUM 136 mmol/l (132-148)
--- NOTE | 2017-03-20 19:06 | CP.PCM.CON ---
History of Present Illness - History of Present Illness History of Present Illness: Dr Lerma PMR consultation on Peggy Baires, born 1960 who has undergone a right TKR. Post op pain. She has chronic pain and does not feel that this is holding well but she is on Oxycontin 20mg q8 and oxycodone. I do not want to increase meds. + constipation on Colace and lactulose as well. Has chronic LBP for which she gets NEGRO and also shoulder pain Review of Systems - Constitutional Constitutional: absent: Chills - EENT Eyes: absent: Blurred Vision Nose/Mouth/Throat: absent: Nasal Congestion - Cardiovascular Cardiovascular: absent: Chest Pain - Respiratory Respiratory: absent: Dyspnea - Gastrointestinal Gastrointestinal: Constipation - Musculoskeletal Musculoskeletal: Abnormal Gait - Neurological Neurological: absent: Abnormal Hearing, Abnormal Movements Past Patient History - Infectious Disease Hx of Infectious Diseases: None - Tetanus Immunizations Tetanus Immunization: Unknown - Past Medical History & Family History Past Medical History?: Yes - Past Social History Smoking Status: Never Smoked Alcohol: None Drugs: Denies - CARDIAC Hx Cardiac Disorders: No - PULMONARY Hx Respiratory Disorders: Yes Hx Bronchitis: Yes - NEUROLOGICAL Hx Neurological Disorder: Yes Other/Comment: NUMBENESS [place] LEGS AND BACK - HEENT Hx HEENT Problems: No - RENAL Hx Chronic Kidney Disease: No - ENDOCRINE/METABOLIC Hx Diabetes Mellitus Type 2: Yes - HEMATOLOGICAL/ONCOLOGICAL Hx Blood Disorders: Yes Hx Anemia: Yes Hx Gum Bleeding: Yes - INTEGUMENTARY Hx Dermatological Problems: No - MUSCULOSKELETAL/RHEUMATOLOGICAL Hx Musculoskeletal Disorders: Yes Hx Arthritis: Yes Hx Back Pain: Yes Hx Falls: No Other/Comment: MUSCLE WEAKNESS .LIMIT JOINTMOTION - GASTROINTESTINAL Hx Gastrointestinal Disorders: Yes Hx Gastroesophageal Reflux: Yes - GENITOURINARY/GYNECOLOGICAL Hx Genitourinary Disorders: No - PSYCHIATRIC Hx Psychophysiologic Disorder: No Hx Substance Use: No - SURGICAL HISTORY Hx Orthopedic Surgery: Yes (RIGHT KNEE REPLACEMENT, RIGHT HIP SX, LEFT MENSICUS REPAIR) - ANESTHESIA Hx Anesthesia: Yes Hx Anesthesia Reactions: No Hx Malignant Hyperthermia: No Meds Allergies/Adverse Reactions: Allergies Allergy/AdvReac Type Severity Reaction Status Date / Time seasonal Allergy ITCHING Uncoded 03/18/17 16:55 - Medications Medications: Current Medications Acetaminophen (Tylenol 325mg Tab) 650 mg PO Q6 PRN PRN Reason: Fever >100.4 F Albuterol (Ventolin Hfa 90 Mcg/Actuation (8 G)) 2 puff IH Q4 PRN PRN Reason: Shortness of Breath Albuterol/Ipratropium (Duoneb 3 Mg/0.5 Mg (3 Ml) Ud) 3 ml INH RQ4 PRN PRN Reason: Shortness of Breath Last Admin: 03/20/17 05:39 Dose: 3 ml Docusate Sodium (Colace) 100 mg PO BID [facility] Last Admin: 03/20/17 17:08 Dose: 100 mg Enoxaparin Sodium (Lovenox) 40 mg SC DAILY [facility] PRN Reason: Protocol Last Admin: 03/20/17 09:29 Dose: 40 mg Folic Acid (Folic Acid) 1 mg PO DAILY [facility] Last Admin: 03/20/17 09:29 Dose: 1 mg Home Med (Patient Own Control [Patient Own Control]) 5 tab PO HS [facility] Home Med (Vit B12) 2 tab PO DAILY [facility] Home Med (Mag07) 5 tab PO HS [facility] Home Med (Triphala) 2 tab PO [facility] Home Med (Acidophilus) 1 tab PO DAILY [facility] Home Med (Patient's Own Medication) 2 unit PO HS [facility] Hydrochlorothiazide (Hydrodiuril) 25 mg PO DAILY [facility] Last Admin: 03/20/17 09:29 Dose: 25 mg Lactulose (Enulose) 20 gm PO DAILY PRN PRN Reason: Constipation Last Admin: 03/20/17 09:29 Dose: 20 gm Metformin HCl (Glucophage) 500 mg PO BID [facility] Last Admin: 03/20/17 17:09 Dose: 500 mg Ondansetron HCl (Zofran Inj) 4 mg IVP Q6 PRN PRN Reason: Nausea/Vomiting Oxycodone HCl (Oxycontin Extended Release Tab) 20 mg PO Q8 [facility] Last Admin: 03/20/17 16:36 Dose: 20 mg Oxycodone HCl (Oxycodone Immediate Release Tab) 10 mg PO Q4 PRN PRN Reason: Pain, severe (8-10) Last Admin: 03/20/17 18:16 Dose: 10 mg Pantoprazole Sodium (Protonix Ec Tab) 40 mg PO DAILY [facility] Last Admin: 03/20/17 09:30 Dose: 40 mg Pregabalin (Lyrica) 25 mg PO TID [facility] Last Admin: 03/20/17 17:08 Dose: 25 mg Pregabalin (Lyrica) 50 mg PO TID [facility] Last Admin: 03/20/17 17:08 Dose: 50 mg Saliva Substitute (First Magic Mouthwash) 5 ml PO QID [facility] Last Admin: 03/20/17 17:08 Dose: 5 ml Zolpidem Tartrate (Ambien) 5 mg PO HS PRN PRN Reason: Sleep Last Admin: 03/18/17 21:58 Dose: 5 mg Physical Exam - Constitutional Appears: No Acute Distress - Head Exam Head Exam: ATRAUMATIC, NORMAL INSPECTION, NORMOCEPHALIC - Eye Exam Eye Exam: EOMI - ENT Exam ENT Exam: Mucous Membranes Moist - Respiratory Exam Respiratory Exam: NORMAL BREATHING PATTERN - Cardiovascular Exam Cardiovascular Exam: REGULAR RHYTHM - GI/Abdominal Exam GI & Abdominal Exam: Distended. absent: Firm - Neurological Exam Neurological exam: Alert, CN II-XII Intact, Oriented x3 - Psychiatric Exam Psychiatric exam: Normal Affect, Normal Mood Results - Vital Signs Recent Vital Signs: Last Vital Signs Temp 97.7 F 03/20/17 17:33 Pulse 80 03/20/17 17:33 Resp 20 03/20/17 17:33 BP 107/63 03/20/17 17:33 Pulse Ox 96 03/20/17 17:33 - Labs Result Diagrams: 03/20/17 12:00 03/20/17 12:00 Labs: Laboratory Results - last 24 hr 03/19/17 03/20/17 03/20/17 20:04 06:55 11:00 WBC RBC Hgb Hct MCV MCH MCHC RDW Plt Count Sodium Potassium Chloride Carbon Dioxide Anion Gap BUN Creatinine Est GFR ( Amer) Est GFR (Non-Af Amer) POC Glucose (mg/dL) 127 H 101 107 Random Glucose Calcium 03/20/17 03/20/17 03/20/17 12:00 12:00 16:34 WBC 6.5 RBC 3.51 L Hgb 10.1 L Hct 31.6 L MCV 90.0 MCH 28.7 MCHC 31.9 L RDW 14.1 Plt Count 263 Sodium 136 Potassium 3.8 Chloride 99 Carbon Dioxide 27 Anion Gap 14 BUN 9 Creatinine 0.8 Est GFR ( Amer) > 60 Est GFR (Non-Af Amer) > 60 POC Glucose (mg/dL) 120 H Random Glucose 128 H Calcium 9.3 Assessment & Plan - Assessment and Plan (Free Text) Assessment: right TKR PT/OT to continue to help increase functional independence Pain: not entirely controlled but I do not feel comfortable increasing the dosage now Vascular: no evidence of DVT GI: + constipation on bowel regimen Patient continues to be an excellent TCU rehabilitation candidate and will have continued focused PT, OT and recreational therapy to help facilitate a safe and appropriate d/c plan
[2017-03-20] MEDS: [UNRECOGNIZED DRUG - OTHER] PO SCH (21:10)
[2017-03-20] MEDS: TRIPHALA PO SCH (21:10)
[2017-03-20] MEDS: RESCUE PO SCH (21:10)
[2017-03-20] MEDS ORDERED: [UNRECOGNIZED DRUG - OTHER] PO SCH (22:00)
[2017-03-20] MEDS ORDERED: [UNRECOGNIZED DRUG - OTHER] PO SCH (22:00)
[2017-03-20] MEDS ORDERED: [UNRECOGNIZED DRUG - OTHER] PO SCH ×2 (22:00)
[2017-03-21] MEDS: oxyCODONE 20 mg ER Tab (oxyCONTIN) PO SCH ×3 (00:14→17:22)
[2017-03-21] MEDS: oxyCODONE 5 mg Immediate Release Tab PO PRN ×4 (07:55→20:21)
[2017-03-21] MEDS ORDERED: [UNRECOGNIZED DRUG - OTHER] PO SCH (09:00)
[2017-03-21] MEDS ORDERED: [UNRECOGNIZED DRUG - OTHER] PO SCH (09:00)
[2017-03-21] MEDS: Mag&Al/Simet/Diphen/Lido 237 ML KIT PO SCH ×4 (09:17→21:56)
[2017-03-21] MEDS: VIT B12 PO SCH (09:17)
[2017-03-21] MEDS: ACIDOPHILUS PO SCH (09:18)
[2017-03-21] MEDS: Enoxaparin 40 mg Syringe SC SCH (09:18)
[2017-03-21] MEDS: Pantoprazole 40 mg EC Tab PO SCH (09:19)
[2017-03-21] MEDS: [UNRECOGNIZED DRUG - OTHER] PO SCH (21:47)
[2017-03-21] MEDS: TRIPHALA PO SCH (21:47)
[2017-03-21] MEDS: RESCUE PO SCH (21:48)
[2017-03-22] MEDS: oxyCODONE 20 mg ER Tab (oxyCONTIN) PO SCH ×3 (00:06→17:00)
[2017-03-22] MEDS: oxyCODONE 5 mg Immediate Release Tab PO PRN ×4 (06:56→23:06)
[2017-03-22] MEDS: VIT B12 PO SCH (08:59)
[2017-03-22] MEDS: ACIDOPHILUS PO SCH (09:00)
[2017-03-22] MEDS: Mag&Al/Simet/Diphen/Lido 237 ML KIT PO SCH ×4 (09:01→21:20)
[2017-03-22] MEDS: Pantoprazole 40 mg EC Tab PO SCH (09:02)
[2017-03-22] MEDS: Enoxaparin 40 mg Syringe SC SCH (09:02)
[2017-03-22] MEDS: RESCUE PO SCH (21:20)
[2017-03-22] MEDS: TRIPHALA PO SCH (21:20)
[2017-03-22] MEDS: [UNRECOGNIZED DRUG - OTHER] PO SCH (21:20)
[2017-03-23] MEDS: oxyCODONE 20 mg ER Tab (oxyCONTIN) PO SCH ×3 (00:43→17:37)
[2017-03-23] MEDS: oxyCODONE 5 mg Immediate Release Tab PO PRN ×5 (03:05→21:58)
[2017-03-23] MEDS: VIT B12 PO SCH (08:44)
[2017-03-23] MEDS: ACIDOPHILUS PO SCH (08:44)
[2017-03-23] MEDS: Enoxaparin 40 mg Syringe SC SCH (08:45)
[2017-03-23] MEDS: Mag&Al/Simet/Diphen/Lido 237 ML KIT PO SCH ×4 (08:45→21:39)
[2017-03-23] MEDS: Pantoprazole 40 mg EC Tab PO SCH (08:46)
--- NOTE | 2017-03-23 14:06 | CP.PCM.PN ---
Subjective - Date & Time of Evaluation Date of Evaluation: 03/23/17 Time of Evaluation: 14:00 - Subjective Subjective: States her pain is better with regimen started by Dr Simmons No fever denies CP no SOB, no wheezing no abd pain Objective - Vital Signs/Intake and Output Vital Signs (last 24 hours): Temp Pulse Resp BP Pulse Ox 97.5 F L 84 20 121/71 93 L 03/23/17 08:38 03/23/17 10:06 03/23/17 08:38 03/23/17 10:06 03/23/17 10:06 - Medications Medications: Current Medications Acetaminophen (Tylenol 325mg Tab) 650 mg PO Q6 PRN PRN Reason: Fever >100.4 F Albuterol (Ventolin Hfa 90 Mcg/Actuation (8 G)) 2 puff IH Q4 PRN PRN Reason: Shortness of Breath Albuterol/Ipratropium (Duoneb 3 Mg/0.5 Mg (3 Ml) Ud) 3 ml INH RQ4 PRN PRN Reason: Shortness of Breath Last Admin: 03/20/17 05:39 Dose: 3 ml Docusate Sodium (Colace) 100 mg PO BID [facility] Last Admin: 03/23/17 08:44 Dose: 100 mg Enoxaparin Sodium (Lovenox) 40 mg SC DAILY [facility] PRN Reason: Protocol Last Admin: 03/23/17 08:45 Dose: 40 mg Folic Acid (Folic Acid) 1 mg PO DAILY [facility] Last Admin: 03/23/17 08:45 Dose: 1 mg Home Med (Vit B12) 2 tab PO DAILY [facility] Last Admin: 03/23/17 08:44 Dose: 2 tab Home Med (Mag07) 5 tab PO HS [facility] Last Admin: 03/22/17 21:20 Dose: 5 tab Home Med (Triphala) 2 tab PO HS [facility] Last Admin: 03/22/17 21:20 Dose: 2 tab Home Med (Acidophilus) 1 tab PO DAILY [facility] Last Admin: 03/23/17 08:44 Dose: 1 tab Home Med (Patient's Own Medication) 2 unit PO HS [facility] Last Admin: 03/22/17 21:20 Dose: 2 unit Hydrochlorothiazide (Hydrodiuril) 25 mg PO DAILY [facility] Last Admin: 03/23/17 08:45 Dose: 25 mg Lactulose (Enulose) 20 gm PO DAILY PRN PRN Reason: Constipation Last Admin: 03/23/17 08:47 Dose: 20 gm Metformin HCl (Glucophage) 500 mg PO BID [facility] Last Admin: 03/23/17 08:45 Dose: 500 mg Ondansetron HCl (Zofran Inj) 4 mg IVP Q6 PRN PRN Reason: Nausea/Vomiting Oxycodone HCl (Oxycontin Extended Release Tab) 20 mg PO Q8 [facility] Last Admin: 03/23/17 08:43 Dose: 20 mg Oxycodone HCl (Oxycodone Immediate Release Tab) 15 mg PO Q4 PRN PRN Reason: Pain, severe (8-10) Pantoprazole Sodium (Protonix Ec Tab) 40 mg PO DAILY [facility] Last Admin: 03/23/17 08:46 Dose: 40 mg Pregabalin (Lyrica) 100 mg PO Q8 [facility] Saliva Substitute (First Magic Mouthwash) 5 ml PO QID [facility] Last Admin: 03/23/17 12:57 Dose: 5 ml Zolpidem Tartrate (Ambien) 5 mg PO HS PRN PRN Reason: Sleep Last Admin: 03/22/17 01:55 Dose: 5 mg - Labs Labs: 03/20/17 12:00 03/20/17 12:00 - Constitutional Appears: No Acute Distress - Head Exam Head Exam: NORMAL INSPECTION, NORMOCEPHALIC - Eye Exam Eye Exam: EOMI, Normal appearance, PERRL Pupil Exam: NORMAL ACCOMODATION - ENT Exam ENT Exam: Mucous Membranes Moist, Normal External Ear Exam - Neck Exam Neck Exam: Full ROM. absent: Meningismus - Respiratory Exam Respiratory Exam: NORMAL BREATHING PATTERN. absent: Wheezes, Respiratory Distress - Cardiovascular Exam Cardiovascular Exam: REGULAR RHYTHM, +S1, +S2 - GI/Abdominal Exam GI & Abdominal Exam: Soft, Normal Bowel Sounds. absent: Tenderness - Extremities Exam Extremities Exam: Normal Capillary Refill. absent: Calf Tenderness Additional comments: right knee with dressing - Back Exam Back Exam: Full ROM. absent: CVA tenderness (L), CVA tenderness (R) - Neurological Exam Neurological Exam: Alert, Awake, CN II-XII Intact, Oriented x3 Neuro motor strength exam: Left Upper Extremity: 5, Right Upper Extremity: 5, Left Lower Extremity: 5, Right Lower Extremity: 5 - Psychiatric Exam Psychiatric exam: Normal Affect, Normal Mood - Skin Skin Exam: Dry, Normal Color, Warm Assessment and Plan - Assessment and Plan (Free Text) Assessment: 56 yo female with history of obesity, COPD and chronic knee and back pain had TKR of the right knee 4 yrs ago after sustaining right knee injury at work in an elevator accident. Patient had revision of right TKR 03/15 and now admitted in TCU for continuation of PT/OT 1. s/p Revision of TKR, Right Pain management with Oxycodone RTC and prn and Lyrica for neuropathic pain as rec by Dr Simmons Physiatry on consult - Dr Lerma PT/OT Ortho consult - Dr Thompson 2. Pre diabetic Accuchecks and insulin coverage continue Metformin 500mg PO BID 3. Morbid obesity follows up with an operations section manager 4. Chronic lower back pain continue pain medication and PT 5. Chronic Anemia cont Ferrous 6. COPD asymptomatic Duonebs prn for SOB/wheezing 7. Constipation on Colace Magnesium 7 8. DVT prophylaxis Lovenox 40mg SC daily
--- NOTE | 2017-03-23 17:38 | CP.PCM.PN ---
Subjective - Date & Time of Evaluation Date of Evaluation: 03/23/17 Time of Evaluation: 17:37 - Subjective Subjective: Patient seen in room s/p right knee revision pain control much better today has right foot drop, will not yet brace, continue with dorsiflexion wrap continue with current care Objective - Vital Signs/Intake and Output Vital Signs (last 24 hours): Temp Pulse Resp BP Pulse Ox 98.1 F 105 H 20 139/82 97 03/23/17 16:23 03/23/17 16:37 03/23/17 16:23 03/23/17 16:23 03/23/17 16:37 - Medications Medications: Current Medications Acetaminophen (Tylenol 325mg Tab) 650 mg PO Q6 PRN PRN Reason: Fever >100.4 F Albuterol (Ventolin Hfa 90 Mcg/Actuation (8 G)) 2 puff IH Q4 PRN PRN Reason: Shortness of Breath Albuterol/Ipratropium (Duoneb 3 Mg/0.5 Mg (3 Ml) Ud) 3 ml INH RQ4 PRN PRN Reason: Shortness of Breath Last Admin: 03/20/17 05:39 Dose: 3 ml Docusate Sodium (Colace) 100 mg PO BID [facility] Last Admin: 03/23/17 08:44 Dose: 100 mg Enoxaparin Sodium (Lovenox) 40 mg SC DAILY [facility] PRN Reason: Protocol Last Admin: 03/23/17 08:45 Dose: 40 mg Folic Acid (Folic Acid) 1 mg PO DAILY [facility] Last Admin: 03/23/17 08:45 Dose: 1 mg Home Med (Vit B12) 2 tab PO DAILY [facility] Last Admin: 03/23/17 08:44 Dose: 2 tab Home Med (Mag07) 5 tab PO HS [facility] Last Admin: 03/22/17 21:20 Dose: 5 tab Home Med (Triphala) 2 tab PO HS [facility] Last Admin: 03/22/17 21:20 Dose: 2 tab Home Med (Acidophilus) 1 tab PO DAILY [facility] Last Admin: 03/23/17 08:44 Dose: 1 tab Home Med (Patient's Own Medication) 2 unit PO HS [facility] Last Admin: 03/22/17 21:20 Dose: 2 unit Hydrochlorothiazide (Hydrodiuril) 25 mg PO DAILY [facility] Last Admin: 03/23/17 08:45 Dose: 25 mg Metformin HCl (Glucophage) 500 mg PO BID [facility] Last Admin: 03/23/17 08:45 Dose: 500 mg Ondansetron HCl (Zofran Inj) 4 mg IVP Q6 PRN PRN Reason: Nausea/Vomiting Oxycodone HCl (Oxycontin Extended Release Tab) 20 mg PO Q8 [facility] Last Admin: 03/23/17 08:43 Dose: 20 mg Oxycodone HCl (Oxycodone Immediate Release Tab) 15 mg PO Q4 PRN PRN Reason: Pain, severe (8-10) Last Admin: 03/23/17 14:23 Dose: 15 mg Pantoprazole Sodium (Protonix Ec Tab) 40 mg PO DAILY [facility] Last Admin: 03/23/17 08:46 Dose: 40 mg Pregabalin (Lyrica) 100 mg PO Q8 [facility] Saliva Substitute (First Magic Mouthwash) 5 ml PO QID [facility] Last Admin: 03/23/17 12:57 Dose: 5 ml Zolpidem Tartrate (Ambien) 5 mg PO HS PRN PRN Reason: Sleep Last Admin: 03/22/17 01:55 Dose: 5 mg - Labs Labs: 03/20/17 12:00 03/20/17 12:00
[2017-03-23] MEDS: [UNRECOGNIZED DRUG - OTHER] PO SCH (21:00)
[2017-03-23] MEDS: RESCUE PO SCH (21:40)
[2017-03-23] MEDS: TRIPHALA PO SCH (21:41)
[2017-03-24] MEDS: oxyCODONE 20 mg ER Tab (oxyCONTIN) PO SCH ×3 (00:02→17:23)
[2017-03-24] MEDS: Albuterol-Ipratrop 3 mg / 0.5 (3 ml) UD INH PRN ×2 (08:06→21:01)
[2017-03-24] MEDS: ACIDOPHILUS PO SCH (08:42)
[2017-03-24] MEDS: Mag&Al/Simet/Diphen/Lido 237 ML KIT PO SCH ×4 (08:43→22:20)
[2017-03-24] MEDS: Pantoprazole 40 mg EC Tab PO SCH (08:43)
[2017-03-24] MEDS: VIT B12 PO SCH (08:43)
[2017-03-24] MEDS: Enoxaparin 40 mg Syringe SC SCH (08:44)
[2017-03-24] MEDS: oxyCODONE 5 mg Immediate Release Tab PO PRN ×4 (10:15→22:14)
[2017-03-24] MEDS: TRIPHALA PO SCH (22:14)
[2017-03-24] MEDS: [UNRECOGNIZED DRUG - OTHER] PO SCH (22:15)
[2017-03-24] MEDS: RESCUE PO SCH (22:16)
[2017-03-25] MEDS: oxyCODONE 20 mg ER Tab (oxyCONTIN) PO SCH ×3 (00:05→16:21)
[2017-03-25] MEDS: oxyCODONE 5 mg Immediate Release Tab PO PRN ×5 (03:10→21:04)
[2017-03-25] MEDS: Mag&Al/Simet/Diphen/Lido 237 ML KIT PO SCH ×4 (09:04→21:15)
[2017-03-25] MEDS: Enoxaparin 40 mg Syringe SC SCH (09:05)
[2017-03-25] MEDS: Pantoprazole 40 mg EC Tab PO SCH (09:06)
[2017-03-25] MEDS: ACIDOPHILUS PO SCH (09:10)
[2017-03-25] MEDS: VIT B12 PO SCH (09:10)
--- NOTE | 2017-03-25 16:27 | CP.PCM.PN ---
Subjective - Date & Time of Evaluation Date of Evaluation: 03/25/17 Time of Evaluation: 10:25 - Subjective Subjective: Patient states that she is "slowly feeling better". She relates that her pain is continuing to improve. She denies any fever, chest pain, shortness of breath , abdominal pain, nausea/vomiting/diarrhea. Objective - Vital Signs/Intake and Output Vital Signs (last 24 hours): Temp Pulse Resp BP Pulse Ox 97.9 F 99 H 20 118/74 99 03/25/17 08:36 03/25/17 08:36 03/25/17 08:36 03/25/17 08:36 03/25/17 08:36 - Medications Medications: Current Medications Acetaminophen (Tylenol 325mg Tab) 650 mg PO Q6 PRN PRN Reason: Fever >100.4 F Albuterol (Ventolin Hfa 90 Mcg/Actuation (8 G)) 2 puff IH Q4 PRN PRN Reason: Shortness of Breath Albuterol/Ipratropium (Duoneb 3 Mg/0.5 Mg (3 Ml) Ud) 3 ml INH RQ4 PRN PRN Reason: Shortness of Breath Last Admin: 03/24/17 21:01 Dose: 3 ml Docusate Sodium (Colace) 100 mg PO BID [facility] Last Admin: 03/25/17 16:21 Dose: 100 mg Enoxaparin Sodium (Lovenox) 40 mg SC DAILY [facility] PRN Reason: Protocol Last Admin: 03/25/17 09:05 Dose: 40 mg Folic Acid (Folic Acid) 1 mg PO DAILY [facility] Last Admin: 03/25/17 09:05 Dose: 1 mg Home Med (Vit B12) 2 tab PO DAILY [facility] Last Admin: 03/25/17 09:10 Dose: 2 tab Home Med (Mag07) 5 tab PO HS [facility] Last Admin: 03/24/17 22:15 Dose: 5 tab Home Med (Triphala) 2 tab PO HS [facility] Last Admin: 03/24/17 22:14 Dose: 2 tab Home Med (Acidophilus) 1 tab PO DAILY [facility] Last Admin: 03/25/17 09:10 Dose: 1 tab Home Med (Patient's Own Medication) 2 unit PO HS [facility] Last Admin: 03/24/17 22:16 Dose: 2 unit Hydrochlorothiazide (Hydrodiuril) 25 mg PO DAILY [facility] Last Admin: 03/25/17 09:05 Dose: 25 mg Metformin HCl (Glucophage) 500 mg PO BID [facility] Last Admin: 03/25/17 16:21 Dose: 500 mg Ondansetron HCl (Zofran Inj) 4 mg IVP Q6 PRN PRN Reason: Nausea/Vomiting Last Admin: 03/24/17 20:20 Dose: 4 mg Oxycodone HCl (Oxycontin Extended Release Tab) 20 mg PO Q8 [facility] Last Admin: 03/25/17 16:21 Dose: 20 mg Oxycodone HCl (Oxycodone Immediate Release Tab) 15 mg PO Q4 PRN PRN Reason: Pain, severe (8-10) Last Admin: 03/25/17 12:19 Dose: 15 mg Pantoprazole Sodium (Protonix Ec Tab) 40 mg PO DAILY [facility] Last Admin: 03/25/17 09:06 Dose: 40 mg Pregabalin (Lyrica) 100 mg PO Q8 [facility] Last Admin: 03/25/17 09:05 Dose: 100 mg Saliva Substitute (First Magic Mouthwash) 5 ml PO QID [facility] Last Admin: 03/25/17 16:21 Dose: 5 ml Zolpidem Tartrate (Ambien) 5 mg PO HS PRN PRN Reason: Sleep Last Admin: 03/24/17 02:28 Dose: 5 mg - Labs Labs: 03/20/17 12:00 03/20/17 12:00 - Constitutional Appears: Well, Non-toxic, No Acute Distress - Head Exam Head Exam: ATRAUMATIC, NORMAL INSPECTION, NORMOCEPHALIC - Eye Exam Eye Exam: EOMI, Normal appearance, PERRL - Respiratory Exam Respiratory Exam: Clear to Ausculation Bilateral, NORMAL BREATHING PATTERN - Cardiovascular Exam Cardiovascular Exam: REGULAR RHYTHM, +S1, +S2. absent: Murmur - GI/Abdominal Exam GI & Abdominal Exam: Soft, Normal Bowel Sounds. absent: Tenderness, Hernia, Mass Additional comments: obese - Extremities Exam Extremities Exam: Full ROM, Normal Capillary Refill, Normal Inspection. absent : Joint Swelling, Pedal Edema - Back Exam Back Exam: NORMAL INSPECTION - Neurological Exam Neurological Exam: Alert, Awake, CN II-XII Intact, Normal Gait, Oriented x3 Additional comments: Right knee with dressing - Psychiatric Exam Psychiatric exam: Normal Affect, Normal Mood - Skin Skin Exam: Dry, Intact, Normal Color, Warm Assessment and Plan - Assessment and Plan (Free Text) Assessment: 56 yo female with history of obesity, COPD and chronic knee and back pain had TKR of the right knee 4 yrs ago after sustaining right knee injury at work in an elevator accident. Patient had revision of right TKR 03/15 and now admitted in TCU for continuation of PT/OT 1. s/p Revision of TKR, Right Pain management with Oxycodone RTC and prn and Lyrica for neuropathic pain as rec by Dr Simmons Physiatry on consult - Dr Lerma PT/OT Ortho consult - Dr Thompson 2. Pre diabetic Accuchecks and insulin coverage continue Metformin 500mg PO BID 3. Morbid obesity follows up with an conference service coordinator I fit shower script given to director of social work 4. Chronic lower back pain continue pain medication and PT 5. Chronic Anemia cont Ferrous 6. COPD asymptomatic Duonebs prn for SOB/wheezing 7. Constipation on Colace Magnesium 7 8. DVT prophylaxis Lovenox 40mg SC daily
[2017-03-25] MEDS: [UNRECOGNIZED DRUG - OTHER] PO SCH (21:12)
[2017-03-25] MEDS: TRIPHALA PO SCH (21:12)
[2017-03-25] MEDS: RESCUE PO SCH (21:16)
[2017-03-26] MEDS: oxyCODONE 20 mg ER Tab (oxyCONTIN) PO SCH ×3 (01:47→18:00)
[2017-03-26] MEDS: oxyCODONE 5 mg Immediate Release Tab PO PRN ×4 (07:16→20:15)
[2017-03-26] MEDS: ACIDOPHILUS PO SCH (09:08)
[2017-03-26] MEDS: Enoxaparin 40 mg Syringe SC SCH (09:09)
[2017-03-26] MEDS: Mag&Al/Simet/Diphen/Lido 237 ML KIT PO SCH ×4 (09:09→21:30)
[2017-03-26] MEDS: VIT B12 PO SCH (09:11)
[2017-03-26] MEDS: Pantoprazole 40 mg EC Tab PO SCH (09:11)
[2017-03-26] MEDS: [UNRECOGNIZED DRUG - OTHER] PO SCH (21:25)
[2017-03-26] MEDS: TRIPHALA PO SCH (21:25)
[2017-03-26] MEDS: RESCUE PO SCH (21:26)
[2017-03-27] MEDS: oxyCODONE 20 mg ER Tab (oxyCONTIN) PO SCH ×3 (00:26→16:45)
[2017-03-27] MEDS: Albuterol-Ipratrop 3 mg / 0.5 (3 ml) UD INH PRN (00:40)
[2017-03-27] MEDS: oxyCODONE 5 mg Immediate Release Tab PO PRN ×5 (02:12→20:46)
[2017-03-27] MEDS: Pantoprazole 40 mg EC Tab PO SCH (08:41)
[2017-03-27] MEDS: ACIDOPHILUS PO SCH (08:42)
[2017-03-27] MEDS: VIT B12 PO SCH (08:42)
[2017-03-27] MEDS: Mag&Al/Simet/Diphen/Lido 237 ML KIT PO SCH ×4 (08:43→21:04)
[2017-03-27] MEDS: Enoxaparin 40 mg Syringe SC SCH (08:44)
--- NOTE | 2017-03-27 13:26 | CP.PCM.PN ---
Subjective - Date & Time of Evaluation Date of Evaluation: 03/27/17 Time of Evaluation: 13:25 - Subjective Subjective: S- minimal post op discomfort Objective - Vital Signs/Intake and Output Vital Signs (last 24 hours): Temp Pulse Resp BP Pulse Ox 98.2 F 84 20 117/74 96 03/27/17 08:27 03/27/17 08:27 03/27/17 08:27 03/27/17 08:27 03/27/17 08:27 - Medications Medications: Current Medications Acetaminophen (Tylenol 325mg Tab) 650 mg PO Q6 PRN PRN Reason: Fever >100.4 F Albuterol (Ventolin Hfa 90 Mcg/Actuation (8 G)) 2 puff IH Q4 PRN PRN Reason: Shortness of Breath Albuterol/Ipratropium (Duoneb 3 Mg/0.5 Mg (3 Ml) Ud) 3 ml INH RQ4 PRN PRN Reason: Shortness of Breath Last Admin: 03/27/17 00:40 Dose: 3 ml Docusate Sodium (Colace) 100 mg PO BID [facility] Last Admin: 03/27/17 08:43 Dose: 100 mg Enoxaparin Sodium (Lovenox) 40 mg SC DAILY [facility] PRN Reason: Protocol Last Admin: 03/27/17 08:44 Dose: 40 mg Folic Acid (Folic Acid) 1 mg PO DAILY [facility] Last Admin: 03/27/17 08:43 Dose: 1 mg Home Med (Vit B12) 2 tab PO DAILY [facility] Last Admin: 03/27/17 08:42 Dose: 2 tab Home Med (Mag07) 5 tab PO HS [facility] Last Admin: 03/26/17 21:25 Dose: 5 tab Home Med (Triphala) 2 tab PO HS [facility] Last Admin: 03/26/17 21:25 Dose: 2 tab Home Med (Acidophilus) 1 tab PO DAILY [facility] Last Admin: 03/27/17 08:42 Dose: 1 tab Home Med (Patient's Own Medication) 2 unit PO HS [facility] Last Admin: 03/26/17 21:26 Dose: 2 unit Hydrochlorothiazide (Hydrodiuril) 25 mg PO DAILY [facility] Last Admin: 03/27/17 08:43 Dose: 25 mg Metformin HCl (Glucophage) 500 mg PO BID [facility] Last Admin: 03/27/17 08:43 Dose: 500 mg Ondansetron HCl (Zofran Inj) 4 mg IVP Q6 PRN PRN Reason: Nausea/Vomiting Last Admin: 03/25/17 16:31 Dose: 4 mg Oxycodone HCl (Oxycontin Extended Release Tab) 20 mg PO Q8 [facility] Last Admin: 03/27/17 08:41 Dose: 20 mg Oxycodone HCl (Oxycodone Immediate Release Tab) 15 mg PO Q4 PRN PRN Reason: Pain, severe (8-10) Last Admin: 03/27/17 09:51 Dose: 15 mg Pantoprazole Sodium (Protonix Ec Tab) 40 mg PO DAILY [facility] Last Admin: 03/27/17 08:41 Dose: 40 mg Pregabalin (Lyrica) 100 mg PO Q8 [facility] Last Admin: 03/27/17 08:40 Dose: 100 mg Saliva Substitute (First Magic Mouthwash) 5 ml PO QID [facility] Last Admin: 03/27/17 08:43 Dose: 5 ml Zolpidem Tartrate (Ambien) 5 mg PO HS PRN PRN Reason: Sleep Last Admin: 03/26/17 22:16 Dose: 5 mg - Labs Labs: 03/20/17 12:00 03/20/17 12:00 - Skin Additional comments: Objective stanc/gait- defrred wound benign no calf tenderness/no Ron's some tenderness at ant aspect patella Assessment and Plan - Assessment and Plan (Free Text) Assessment: A- s/p revisison TKR R P FWB /orthopedically stable doing quite well/orthopedically stable for d/c home
--- NOTE | 2017-03-27 15:54 | RAD ---
PROCEDURE: Right Knee Radiographs. HISTORY: s/p R TKR COMPARISON: 03/15/2017. FINDINGS: BONES: Stable orthopedic hardware status post right TKR. JOINTS: No interval changes. JOINT EFFUSION: None. OTHER FINDINGS: Resolution of air within the soft tissues in the immediate postoperative time. IMPRESSION: Satisfactory postoperative status
[2017-03-27] MEDS: TRIPHALA PO SCH (21:02)
[2017-03-27] MEDS: [UNRECOGNIZED DRUG - OTHER] PO SCH (21:03)
[2017-03-27] MEDS: RESCUE PO SCH (21:03)
[2017-03-28] MEDS: oxyCODONE 20 mg ER Tab (oxyCONTIN) PO SCH ×3 (00:03→17:15)
[2017-03-28] MEDS: oxyCODONE 5 mg Immediate Release Tab PO PRN ×5 (00:58→22:56)
[2017-03-28] MEDS: ACIDOPHILUS PO SCH (09:12)
[2017-03-28] MEDS: VIT B12 PO SCH (09:13)
[2017-03-28] MEDS: Pantoprazole 40 mg EC Tab PO SCH (09:13)
[2017-03-28] MEDS: Mag&Al/Simet/Diphen/Lido 237 ML KIT PO SCH ×4 (09:14→21:47)
[2017-03-28] MEDS: Enoxaparin 40 mg Syringe SC SCH (09:14)
[2017-03-28] MEDS: Albuterol-Ipratrop 3 mg / 0.5 (3 ml) UD INH PRN (10:09)
[2017-03-28] MEDS: RESCUE PO SCH (21:46)
[2017-03-28] MEDS: TRIPHALA PO SCH (21:46)
[2017-03-28] MEDS: [UNRECOGNIZED DRUG - OTHER] PO SCH (21:47)
[2017-03-29] MEDS: oxyCODONE 20 mg ER Tab (oxyCONTIN) PO SCH ×3 (01:10→17:33)
[2017-03-29] MEDS: Pantoprazole 40 mg EC Tab PO SCH (08:28)
[2017-03-29] MEDS: ACIDOPHILUS PO SCH (08:29)
[2017-03-29] MEDS: Mag&Al/Simet/Diphen/Lido 237 ML KIT PO SCH ×4 (08:29→21:48)
[2017-03-29] MEDS: Enoxaparin 40 mg Syringe SC SCH (08:30)
[2017-03-29] MEDS: VIT B12 PO SCH (08:31)
[2017-03-29] MEDS: oxyCODONE 5 mg Immediate Release Tab PO PRN ×4 (09:51→23:02)
[2017-03-29] MEDS: [UNRECOGNIZED DRUG - OTHER] PO SCH (21:48)
[2017-03-29] MEDS: RESCUE PO SCH (21:49)
[2017-03-29] MEDS: TRIPHALA PO SCH (21:49)
[2017-03-30] MEDS: oxyCODONE 20 mg ER Tab (oxyCONTIN) PO SCH ×2 (00:28→08:24)
[2017-03-30] MEDS: oxyCODONE 5 mg Immediate Release Tab PO PRN ×3 (05:20→14:03)
[2017-03-30] MEDS: VIT B12 PO SCH (08:26)
[2017-03-30] MEDS: ACIDOPHILUS PO SCH (08:27)
[2017-03-30] MEDS: Pantoprazole 40 mg EC Tab PO SCH (08:27)
[2017-03-30] MEDS: Mag&Al/Simet/Diphen/Lido 237 ML KIT PO SCH (08:28)
--- NOTE | 2017-03-30 12:15 | CP.PCM.DIS ---
Provider - Provider Date of Admission: 03/18/17 17:05 Attending physician: Allyson Andrade MD Primary care physician: Lalita Beavers MD Consults: Dr. Thompson- orthopedic surgeon Dr. Simmons- pain management Dr. Lerma- PM&R Physical therapy Occupational therapy Time Spent in preparation of Discharge (in minutes): 30 Hospital Course - Lab Results Lab Results: Most Recent Lab Values WBC 6.5 K/uL (4.8-10.8) 03/20/17 12:00 RBC 3.51 Mil/uL (3.80-5.20) L 03/20/17 12:00 Hgb 10.1 g/dL (12.0-16.0) L 03/20/17 12:00 Hct 31.6 % (34.0-47.0) L 03/20/17 12:00 MCV 90.0 fl (81.0-99.0) 03/20/17 12:00 MCH 28.7 pg (27.0-31.0) 03/20/17 12:00 MCHC 31.9 g/dL (33.0-37.0) L 03/20/17 12:00 RDW 14.1 % (11.5-14.5) 03/20/17 12:00 Plt Count 263 K/uL (130-400) 03/20/17 12:00 Sodium 136 mmol/l (132-148) 03/20/17 12:00 Potassium 3.8 MMOL/L (3.6-5.0) 03/20/17 12:00 Chloride 99 mmol/L (98-107) 03/20/17 12:00 Carbon Dioxide 27 mmol/L (22-30) 03/20/17 12:00 Anion Gap 14 (10-20) 03/20/17 12:00 BUN 9 mg/dl (7-17) 03/20/17 12:00 Creatinine 0.8 mg/dL (0.7-1.2) 03/20/17 12:00 Est GFR ( Amer) > 60 03/20/17 12:00 Est GFR (Non-Af Amer) > 60 03/20/17 12:00 POC Glucose (mg/dL) 108 mg/dL (65-110) 03/21/17 11:18 Random Glucose 128 mg/dL (65-105) H 03/20/17 12:00 Calcium 9.3 mg/dL (8.4-10.2) 03/20/17 12:00 - Hospital Course Hospital Course: 56 yo female with history of obesity, COPD and chronic knee and back pain had TKR of the right knee performed by Dr. Thompson after sustaining right knee injury at work 4 yrs ago in an elevator accident. Since surgery, patient had gait instability and progressive worsening of the pain on her right knee. Patient had revision of right TKR and 4 days later was admitted to TCU for continuation of PT/OT and pain management. During her stay, she remained hemodynamically stable. She was seen by orthopedic team, PM&R, pain management, physical therapist, and occupational therapy. She was able to regain some of her strength and is able to ambulate well today on her own. She has no evidence of calf tenderness and surgical site looks benign with no evidence of infection. She was discharged home on 03/30 in stable condition. 1. s/p Revision of TKR, Right - Outpatient physical therapy 3 times a week x 4 weeks - Follow up appointment with Dr. Thompson on 04/02 - continue pain management with Oxycodone and Lyrica for neuropathic pain as outpatient, with pain management followup appointment 2. Pre diabetic continue Metformin 500mg PO BID 3. Morbid obesity f/u with her blood bank custodian 4. Chronic lower back pain continue pain medication and PT 6. COPD asymptomatic Albuterol/duonebs prescribed as she takes them at home 7. Constipation Continue home colace 8. DVT prophylaxis - ASA 325 mg po BID Discharge Exam - Additional Findings Additional findings: EXAM: Vitals stable and reviewed GEN: WDWN, alert, cooperative HEENT: NCAT, PERRL, EOMI Neck: supple, no lymphadenopathy CARDIO: +S1S2, RRR, NO M/R/G LUNG: CTAB, NO W/R/R ABD: soft, obese, NT, ND, no masses, no HSM EXT: no edema, pedal pulses. mild tenderness to right knee Neuro: AAOx3, Strength equal, bilateral UE/LE Psych: normal mood, normal affect Discharge Plan - Discharge Medications Prescriptions: Albuterol/Ipratropium [Duoneb 3 mg/0.5 mg (3 ml) UD] 3 ml INH RQ4 PRN #1 inhaler PRN Reason: Shortness Of Breath Docusate [Colace] 100 mg PO BID #60 cap hydroCHLOROthiazide [Hydrodiuril] 25 mg PO DAILY #60 tab oxyCODONE [oxyCODONE Immediate Release Tab] 10 mg PO Q4 #30 tab oxyCODONE [oxyCONTIN Extended Release Tab] 20 mg PO Q8 #15 tab Pantoprazole Sodium [Protonix] 40 mg PO DAILY #30 tab Pregabalin [Lyrica] 100 mg PO Q8 #90 cap Zolpidem Tartrate [Ambien Cr] 12.5 mg PO HS PRN #30 tab PRN Reason: Sleep - Follow Up Plan Condition: GOOD Disposition: HOME/ ROUTINE Instructions: Knee Replacement (DC) Additional Instructions: f/u with Dr. Thompson on 04/02, return to ED for worsening pain, numbness, fever or infection of surgical site Physical therapy 3 times a week x 4 weeks f/u with PMD in one week Referrals: Reagan Thompson III, MD [Staff Provider] - Lalita Beavers MD [Primary Care Provider] -
[2017-03-30] MEDS ORDERED: Mag&Al/Simet/Diphen/Lido 237 ML KIT PO SCH (13:00)
[2017-03-30] MEDS ORDERED: Enoxaparin 40 mg Syringe SC ONE (14:47)
[2017-03-30 17:03] VITALS: BP 118/70; PULSE 110; TEMP 97.4; O2SAT 100
== END 2017-03-30 16:30 | disposition home or self-care (01) | DRG 92 ==
LOC: H.TCU 17:05
PROVIDERS: ADMIT Hospitalist; ATTEND Hospitalist
PROC: F07M6FZ Therapeutic Exercise Treatment of Musculoskeletal System - Whole Body using Assistive, Adaptive, Supportive or Protective Equipment (ICD-10-PCS; principal; 2017-03-18)
PROC: F08Z4FZ Home Management Treatment using Assistive, Adaptive, Supportive or Protective Equipment (ICD-10-PCS; 2017-03-18)
DX: G89.29 Other chronic pain (principal); D62 Acute posthemorrhagic anemia; Z68.41 Body mass index [BMI] 40.0-44.9, adult; Z96.651 Presence of right artificial knee joint; E11.9 Type 2 diabetes mellitus without complications; E66.01 Morbid (severe) obesity due to excess calories; J44.9 Chronic obstructive pulmonary disease, unspecified; K21.9 Gastro-esophageal reflux disease without esophagitis; K59.00 Constipation, unspecified; M21.371 Foot drop, right foot; Z79.82 Long term (current) use of aspirin; J40 Bronchitis, not specified as acute or chronic; M19.90 Unspecified osteoarthritis, unspecified site; M25.519 Pain in unspecified shoulder; M25.569 Pain in unspecified knee; M54.5 Low back pain; M62.81 Muscle weakness (generalized); R26.9 Unspecified abnormalities of gait and mobility